=== PATIENT | female | born 1950 | race Caucasian/White ===

== ENCOUNTER 2022-04-21 10:23 | Emergency (ER) | payer MEDICARE, BC, SELFPAY ==
[2022-04-21 10:43] VITALS: BP 128/79; PULSE 78; RESP 20; TEMP 36.4; O2SAT 96; BMI 31.1
[2022-04-21 11:58] LABS: PCR FLU A Negative PCR FLU A (Negative); PCR FLU B Negative PCR FLU B (Negative); PCR RSV Negative PCR RSV (Negative)
--- NOTE | 2022-04-21 12:28 | CRLHL7_ITS ---
For Patients: As a result of the Cures Act, medical imaging exams and procedure reports are released immediately into your electronic medical record. You may view this report before your referring provider. If you have questions, please contact your health care provider. INDICATION: Cough. TECHNIQUE: PA and lateral chest radiographs. COMPARISON: None available. FINDINGS: Mild bronchial wall thickening. No consolidation, pneumothorax, or pleural effusion. Normal cardiac and mediastinal contours. IMPRESSION: Diffuse bronchial wall thickening as may be seen with bronchitis/viral infection. Dictated by Syed Peoples MD @ 04/21/2022 1:01:40 PM Dictated by: Syed Peoples MD @ 04/21/2022 13:01:44 (Electronically Signed)
--- NOTE | 2022-04-21 12:29 | ED_ITS ---
HPI - General Adult General Time Seen by Provider: 12:29 Date Seen: 04/21/22 Chief complaint: Cough Stated complaint: Cold and cough symptoms Time Seen by Provider: 04/21/22 12:28 Source: patient and RN notes reviewed Mode of arrival: ambulatory Limitations: no limitations History of Present Illness HPI narrative: Patient is a 71-year-old female that was seen in triage initially due to the high volume and acuity. She did have weight before being seen. She has been sick since about Friday. She feels like she has a little confused about her respiratory symptoms. Thought she was just getting a bit of a cold. Then yesterday started getting a little bit of right shoulder pain reminiscent of prior pneumonia. She states she had pneumonia when she was younger and it was quite severe, states she was on her way out. She has had a little bit more productive cough overnight. She is not aware of any fevers. Her hormone patch has been off for 3 days, she still gets hot flashes. Difficult for her to say that she has not felt warm at times because of this, she states it is a bit confusing to her. She relays multiple friends and acquaintances that have re cently had respiratory symptoms and then . She had COVID in August of 2021. She had her to initial COVID vaccines, is not interested in further ones. She has had her flu shot and believe she is up-to-date on her pneumonia shots. Denies any abdominal symptoms with this, no nausea vomiting diarrhea. No chest pain but does note that she has had a couple episodes where she has had some arrhythmia issues. Not currently having it now. Has noted maybe a little swelling of her socks on her sock line, does not typically have lower extremity edema. Her triple swab is still pending at this time. She denies any asthma or chronic lung disease but does note she will get bronchitis if she is exposed to smoke. Related Data Home Medications Medication Instructions Recorded Confirmed No Known Home Medications 04/21/22 04/21/22 Allergies Allergy/AdvReac Type Severity Reaction Status Date / Time Penicillins Allergy Anaphylaxis Verified 04/21/22 10:47 Review of Systems Status of ROS: Reports: 10 or more systems reviewed and unremarkable except as noted in History and below Exam Const: Vital Signs, click to edit/add: Vital Signs - 24 hr 04/21/22 10:43 Temperature 97.6 F Pulse Rate [Pulse Oximeter] 78 Respiratory Rate 20 Blood [facility] 128/79 Pulse Oximetry 96 Oxygen Delivery Me thod Room Air Documenting provider has reviewed patient's vital signs: yes Common normals: no apparent distress, oriented x3, no limitations, healthy appearing, alert and well nourished General appearance: cooperative, comfortable, well kempt and well developed HENMT: Common normals: normocephalic, head/scalp atraumatic, hearing grossly normal bilaterally and external ears normal Head and scalp: normocephalic and atraumatic External ear: external ears normal Eye: Common normals: PERRL, EOMs intact bilaterally, conjunctivae normal and no scleral icterus Conjunctiva: conjunctiva(e) normal Pupil: PERRL Neck & C-Spine: Common normals: full ROM, no lymphadenopathy, supple, no meningeal signs, no JVD and thyroid normal Thyroid: thyroid normal Resp: Common normals: normal respiratory effort, no retractions, no use of accessory muscles and clear to auscultation bilaterally Effort & inspection: able to speak in complete sentences Auscultation: clear to auscultation bilaterally Cardio: Common normals: no JVD, regular rate, regular rhythm, S1 normal heart sound, S2 normal heart sound, no gallops, no clicks, no murmurs and no rub Rate: regular rate Rhythm: regular rhythm Heart sounds: S1 normal and S2 normal Extremity: Other: Can see small indentation from her sock line which is bilateral and symmetric but no pitting edema per se of her lower extremities, no calf tenderness. Neuro: Common normals: oriented x3 Sensorium/orientation: alert Meningeal signs: no meningeal signs Psych: Appearance: well kempt Course Course Hospital Course: Did provide patient with water, she will go back to the the [facility]. I will order a two view chest x-ray. She is hemodynamically stable, also await the triple swab. At this time do not see that any labs are necessary but will await our chest x-ray and triple swab. Reevaluation(s) Reevaluation #1: Patient's triple swab is negative, awaiting chest x-ray. Will order some baseline labs. Time: 12:36 Reevaluation #2: Have brought chest x-ray report and copy of patient's labs in and reviewed them all. She does have some bronchial thickening on her chest x-ray but reviewed with her that this is viral. Antibiotics are not indicated. Her labs are completely normal. Recommend [id number] medication, follow up if worsening. Did review prednisone, she does not like to take it. I personally would favor observation and conservative management rather than prednisone but did want to review this with her. Time: 15:00 Vital Signs Vital signs: Initial Vital Signs Temperature 97.6 F 04/21/22 10:43 Temperature Source Temporal Artery Scan 04/21/22 10:43 Pulse Rate 78 04/21/22 10:43 Respiratory Rate 20 04/21/22 10:43 Blood Pressure 128/79 04/21/22 10:43 Blood Pressure Mean 95 04/21/22 10:43 Blood Pressure Position Sitting 04/21/22 10:43 Pulse Oximetry 96 04/21/22 10:43 Oxygen Delivery Method 04/21/22 10:43 Vital Signs Temperature 97.6 F 04/21/22 10:43 Pulse Rate 78 04/21/22 10:43 Respiratory Rate 20 04/21/22 10:43 Blood Pressure 128/79 04/21/22 10:43 Pulse Oximetry 96 04/21/22 10:43 Oxygen Delivery Method 04/21/22 10:43 Temperature 97.6 F 04/21/22 10:43 Pulse Rate 78 04/21/22 10:43 Respiratory Rate 20 04/21/22 10:43 Blood Pressure 128/79 04/21/22 10:43 Pulse Oximetry 96 04/21/22 10:43 Oxygen Delivery Method 04/21/22 10:43 Medical Decision Making Lab Data Lab results reviewed: Yes I reviewed the patient's lab results Labs: Lab Results 04/21/22 04/21/22 04/21/22 Range/Units 10:47 12:37 13:29 WBC 6.88 (4.50-11.00) K/uL RBC 4.73 (4.00-5.20) m/uL Hgb 15.6 (12.0-16.0) gm/dL Hct 44.8 (33.0-51.0) % MCV 95 (80-100) fL MCH 33 (26-34) pg MCHC 35 (32-36) gm/dL RDW Coeff of Royal 11.7 (11.5-15.5) % Plt Count 229 (140-440) K/uL Neut % (Auto) 53.1 (42.0-72.0) % Lymph % (Auto) 35.8 (20-44) % [place] % (Auto) 7.1 (0.0-11.0) % Eos % (Auto) 3.6 (0.0-7.0) % Baso % (Auto) 0.4 (0.0-3.0) % Neut # (Auto) 3.65 (1.7-7.0) K/uL Lymph # (Auto) 2.46 (0.90-2.90) K/uL [place] # (Auto) 0.50 (0.00-0.90) K/UL Eos # (Auto) 0.25 (0.00-0.50) K/uL Baso # (Auto) 0.03 (0.00-0.30) K/uL Sodium (135-149) mmol/L Potassium (3.6-5.1) mmol/L Chloride (96-114) mmol/L Carbon Dioxide (20-32) mmol/L BUN (7-30) mg/dL Creatinine (0.5-1.5) mg/dL Estimated Creat Clear Estimated GFR ml/min Glucose (60-115) mg/dL Calcium (8.4-10.6) mg/dL C-Reactive Protein (0.5-1.0) mg/dL NT-Pro-B Natriuret Pep pg/mL Procalcitonin (<0.50) ng/mL SARS-CoV-2 (PCR) Negative SARS-CoV-2 (Negative) Influenza Type A (PCR) Negative PCR FLU A (Negative) Influenza Type B (PCR) Negative PCR FLU B (Negative) RSV (PCR) Negative PCR RSV (Negative) POC Troponin I 0.01 (0.01-0.04) ng/ml 04/21/22 04/21/22 Range/Units 13:29 13:29 WBC (4.50-11.00) K/uL RBC (4.00-5.20) m/uL Hgb (12.0-16.0) gm/dL Hct (33.0-51.0) % MCV (80-100) fL MCH (26-34) pg MCHC (32-36) gm/dL RDW Coeff of Royal (11.5-15.5) % Plt Count (140-440) K/uL Neut % (Auto) (42.0-72.0) % Lymph % (Auto) (20-44) % [place] % (Auto) (0.0-11.0) % Eos % (Auto) (0.0-7.0) % Baso % (Auto) (0.0-3.0) % Neut # (Auto) (1.7-7.0) K/uL Lymph # (Auto) (0.90-2.90) K/uL [place] # (Auto) (0.00-0.90) K/UL Eos # (Auto) (0.00-0.50) K/uL Baso # (Auto) (0.00-0.30) K/uL Sodium 139 (135-149) mmol/L Potassium 3.9 (3.6-5.1) mmol/L Chloride 106 (96-114) mmol/L Carbon Dioxide 26 (20-32) mmol/L BUN 20 (7-30) mg/dL Creatinine 0.7 (0.5-1.5) mg/dL Estimated Creat Clear 45.76 Estimated GFR 92 ml/min Glucose 105 (60-115) mg/dL Calcium 9.3 (8.4-10.6) mg/dL C-Reactive Protein 0.6 (0.5-1.0) mg/dL NT-Pro-B Natriuret Pep < 20 pg/mL Procalcitonin 0.05 (<0.50) ng/mL SARS-CoV-2 (PCR) (Negative) Influenza Type A (PCR) (Negative) Influenza Type B (PCR) (Negative) RSV (PCR) (Negative) POC Troponin I (0.01-0.04) ng/ml Imaging Data Chest x-ray: Attestation: I have reviewed the pertinent imaging results. My impression: Do not appreciate any pneumonia on my preliminary review of this chest x-ray. Radiologist's impression: Patient: OLLEI AHMADI Facility:?[facility] Patient ID:?[id number] Site Patient ID:?[id number]. Site :?[id number] Study:?XRay Chest 2 View-04/21/2022 12:48:55 PM Ordering Physician:Sharon Lama Final Report: INDICATION: Cough. TECHNIQUE: PA and lateral chest radiographs. COMPARISON: None available. FINDINGS: Mild bronchial wall thickening. No consolidation, pneumothorax, or pleural effusion. Normal cardiac and mediastinal contours. IMPRESSION: Diffuse bronchial wall thickening as may be seen with bronchitis/viral infection. Dictated by Syed Peoples MD @ 04/21/2022 1:01:40 PM Dictated by: Syed Peoples MD @ 04/21/2022 13:01:44 (Electronic Signature) Critical Care Time Critical Care Time Critical Care Time: No Discharge Plan Discharge Clinical Impression: Acute bronchitis, viral Patient Disposition: Home, Self-Care Condition: Stable Instructions: Acute Bronchitis (ED) Additional Instructions: Can use micc-nao-oqpsvuf medications for symptom control. Drink plenty of fluids. Can try lozenges as well to help minimize coughing. Antibiotics are not indicated at this time, all is pointing towards this being viral. If you are not improving over the next week, develops increasing symptoms of worsening cough, develops fever, are having shortness of breath/difficulty breathing, do recommend you seek re-evaluation. Activity Level: Activity as Tolerated Prescriptions: No Action No Known Home Medications Follow Up/Referrals: Alfonzo Mazariegos MD [Primary Care Provider] - Stand Alone Forms: [place] [employer] Info Instructions
[2022-04-21 12:31] LABS: SARS PCR* Negative SARS-CoV-2 (Negative)
--- NOTE | 2022-04-21 12:33 | ED.NURSE ---
Pt was seen and sent out to [facility] by Dr Johnson.
[2022-04-21 13:47] LABS: Troponin, Point-of-Care* 0.01 ng/ml (0.01-0.04)
[2022-04-21 13:58] LABS: Basophils Absolute Auto 0.03 K/uL (0.00-0.30); Basophils Percent Auto 0.4 % (0.0-3.0); Eosinophils Absolute Auto 0.25 K/uL (0.00-0.50); Eosinophils Percent Auto 3.6 % (0.0-7.0); Hematocrit 44.8 % (33.0-51.0); Hemoglobin* 15.6 gm/dL (12.0-16.0); Lymphocytes Absolute Auto 2.46 K/uL (0.90-2.90); Lymphocytes Percent Auto 35.8 % (20-44); Mean Corpuscular HGB Conc 35 gm/dL (32-36); Mean Corpuscular Hemoglobin 33 pg (26-34); Mean Corpuscular Volume 95 fL (80-100); Monocytes Percent Auto 7.1 % (0.0-11.0); Neutrophils Absolute Auto 3.65 K/uL (1.7-7.0); Neutrophils Percent Auto 53.1 % (42.0-72.0); Platelet Count* 229 K/uL (140-440); RDW Coefficient of Variation % 11.7 % (11.5-15.5); Red Blood Count 4.73 m/uL (4.00-5.20); White Blood Count* 6.88 K/uL (4.50-11.00)
[2022-04-21 14:03] LABS: Slide Review Reflex No
[2022-04-21 14:18] LABS: Chloride* 106 mmol/L (96-114); Sodium* 139 mmol/L (135-149)
[2022-04-21 14:19] LABS: Potassium* 3.9 mmol/L (3.6-5.1)
[2022-04-21 14:21] LABS: Creatinine* 0.7 mg/dL (0.5-1.5); Est. Creatinine Clearance* 45.76; Estimated Glomerular Filt Rate 92 ml/min
[2022-04-21 14:22] LABS: Blood Urea Nitrogen* 20 mg/dL (7-30); Calcium* 9.3 mg/dL (8.4-10.6); Carbon Dioxide* 26 mmol/L (20-32); Glucose* 105 mg/dL (60-115)
[2022-04-21 14:25] LABS: C Reactive Protein* 0.6 mg/dL (0.5-1.0)
[2022-04-21 14:33] LABS: NT Pro B Type NatriureticPept* < 20 pg/mL
[2022-04-21 14:40] LABS: Procalcitonin* 0.05 ng/mL (<0.50)
== END 2022-04-21 15:08 | disposition home or self-care (01) ==
PROVIDERS: Emergency Provider Family Medicine; PCP Family Medicine
DX: J20.8 Acute bronchitis due to other specified organisms (principal)
CPT/HCPCS: 36415; 71046; 80048; 83880; 84145; 84484; 85025; 86140; 87502; 87634; 87635; 99283; 99284

== ENCOUNTER 2022-06-11 13:54 | Outpatient (CLI) | payer MEDICARE, BC, SELFPAY ==
[2022-06-11 15:56] LABS: Cholesterol* 197 mg/dL (90-199); HDL Cholesterol* 46 mg/dL (>=50); LDL Cholesterol Calculated 111 mg/dL (<100); Triglycerides* 202 mg/dL (40-149)
== END 2022-06-11 13:55 | disposition home or self-care (01) ==
PROVIDERS: PCP Family Medicine; Visit Provider Internal Medicine
DX: Z00.00 Encounter for general adult medical examination without abnormal findings (principal); R63.5 Abnormal weight gain; Z13.6 Encounter for screening for cardiovascular disorders
CPT/HCPCS: 80061; 84443

== ENCOUNTER 2022-09-24 21:08 | Outpatient (CLI) | payer MEDICARE, BC, SELFPAY ==
--- NOTE | 2022-10-03 11:36 | W.PM.SLEEP ---
Sleep Study Details Details Interpreting Provider: Christin Date of Sleep Study: 09/24/22 Sleep Study Details: STUDY TYPE:? Hospital-based with CPAP titration ? BMI:? 30.8 ORDERING PROVIDER:? Daniel INDICATION:? Concerns about sleep apnea ? SLEEP SUMMARY:? 317 minutes sleep time, efficiency 80.6, arousal index 38.8 RESPIRATORY SUMMARY:? Mean oxygen awake 95, asleep 92, minimum 81 11.3 minutes oxygen between 80 and 88% AHI 26.7, RDI 34.8 Supine AHI 70.2, no supine REM sleep seen comp my Nonsupine AHI 11.6 CPAP titration was performed the patient was titrated up as high as a pressure of 9 decreasing AHI to 13 and coding REM stage sleep in the supine position. This would be considered an incomplete titration. PERIODIC LIMB MOVEMENTS OF SLEEP:? Pretreatment none were noted, post treatment index 20.1, index with arousal 0.6 CARDIAC:? Awake 75, asleep 65. No arrhythmias noted. IMPRESSION:? Severe obstructive sleep apnea with an AHI of 26.7 and an RDI of 34.8. There was significant supine position dependency. CPAP titration was incomplete RECOMMENDATION: Either repeat in-lab titration or CPAP AutoSet pressure 4-17 with close follow-up.
== END 2022-09-24 21:09 | disposition home or self-care (01) ==
PROVIDERS: PCP Family Medicine; Visit Provider Internal Medicine
DX: G47.33 Obstructive sleep apnea (adult) (pediatric) (principal)
CPT/HCPCS: 95811

== ENCOUNTER 2023-04-11 19:15 | Emergency (ER) | payer MEDICARE, BC, SELFPAY ==
[2023-04-11 19:37] VITALS: BP 156/79; PULSE 99; RESP 20; TEMP 37.2; O2SAT 95; BMI 32.4
--- NOTE | 2023-04-11 19:51 | CRLHL7_ITS ---
For Patients: As a result of the Cures Act, medical imaging exams and procedure reports are released immediately into your electronic medical record. You may view this report before your referring provider. If you have questions, please contact your health care provider. INDICATION: Cough. TECHNIQUE: Chest radiographs, two views. COMPARISON: Chest radiographs 05/16/2022. FINDINGS: Lines/Tubes/Devices: None. Mediastinum: Normal cardiac silhouette. Lungs: No focal consolidation. Airways: The trachea remains midline. Pleura: No pleural effusions or pneumothorax. Bones: No acute osseous abnormalities. Upper Abdomen: Unremarkable. IMPRESSION: No acute cardiopulmonary process. Stable examination. Dictated by Ángel Valles MD @ 04/11/2023 8:47:26 PM (Electronically Signed)
--- NOTE | 2023-04-11 19:53 | ED_ITS ---
HPI - General Adult General Chief complaint: Cough Stated complaint: Cough Time Seen by Provider: 04/11/23 19:44 History of Present Illness HPI narrative: This 72-year-old female states that she was diagnosed with COVID a couple weeks ago and comes in with worsening cough recently. She does not report any fevers. She does have some generalized aches and pains. She arrives here with normal vital signs. She states that her cough now is productive at times. Related Data Previous Rx's Medication Instructions Recorded methylprednisolone 4 mg tablets in See Rx Instructions PO .COMPLEX 04/11/23 a dose pack (Medrol ([place])) #21 ea Allergies Allergy/AdvReac Type Severity Reaction Status Date / Time Penicillins Allergy Anaphylaxis Verified 03/30/23 10:26 Review of Systems Status of ROS: Reports: 10 or more systems reviewed and unremarkable except as noted in History and below Narrative: Constitutional: No fevers, no weight gain or loss. Eyes: No discharge. No vision changes. HENT: No congestion, no sore throat, no ear pain. Cardiovascular: No chest pain, no palpitations. Respiratory: No shortness of breath, no wheezes. Cough as described above. Gastrointestinal: No abdominal pain, no vomiting, no diarrhea. Genitourinary: No dysuria, no hematuria. Musculoskeletal: Normal range of motion. Skin: No rashes, no pruritis. Neurological: No dizziness, weakness, sensory change, speech change. Endo/Heme/Allergies: No bruising or bleeding. No polydipsia. Pysch: no suicidality, no anxiety, no insomnia. All other systems reviewed and are negative. [facility] Medical History Acute bronchitis ?J20.9 - Acute bronchitis, unspecified (ICD-10) Visual changes ?H53.9 - Unspecified visual disturbance (ICD-10) Cataracts, bilateral ?H26.9 - Unspecified cataract (ICD-10) Healthcare maintenance ?Z00.00 - Encounter for general adult medical examination without abnormal findings (ICD-10) Achilles tendinitis ?M76.60 - Achilles tendinitis, unspecified leg (ICD-10) Weight gain ?R63.5 - Abnormal weight gain (ICD-10) Hearing loss ?H91.90 - Unspecified hearing loss, unspecified ear (ICD-10) Osteoarthritis ?M19.90 - Unspecified osteoarthritis, unspecified site (ICD-10) ANGEL LUIS (obstructive sleep apnea) ?G47.33 - Obstructive sleep apnea (adult) (pediatric) (ICD-10) Surgical History History of tonsillectomy ?Z90.89 - Acquired absence of other organs (ICD-10) History of appendectomy ?Z90.49 - Acquired absence of other specified parts of digestive tract (ICD- 10) History of cholecystectomy ?Z90.49 - Acquired absence of other specified parts of digestive tract (ICD- 10) Social History Smoking Status: Never smoker Do you use any of these nicotine containing products: None Second hand tobacco smoke exposure: No How often do you have a drink containing alcohol: never How often do you have six or more drinks on one occasion: Never AUDIT-C Alcohol total score: 0 Non-prescribed substance use: denies use Little interest or pleasure in doing things: not at all service: No Exam Narrative: Exam Narrative: Constitutional: Well-developed, well-nourished, no acute distress. HEENT: Normocephalic, atraumatic. Neck: Normal range of motion. Nontender. Supple. Heart: Regular. No murmurs. Normal rate. Intact distal pulses. Lungs: Clear to auscultation. No chest discomfort. No wheezes, rhonchi, or rales. Abdomen: Normal bowel sounds. Nontender. No rebound tenderness. Genitalia: Deferred. Back: No midline tenderness. Normal range of motion. Extremities: Normal range of motion. No injury. Skin: Intact. No rash. Warm. No erythema or pallor. Neurologic: No altered sensation. No weakness. Alert and oriented. Psychiatric: No suicidality. No anxiety or depression. No insomnia. Nursing notes and vitals signs are reviewed. Const: Vital Signs, click to edit/add: Vital Signs - 24 hr 04/11/23 19:37 Temperature 98.9 F Pulse Rate [Right Pulse Oximeter] 99 Respiratory Rate 20 Blood Pressure [Ri ght Upper Arm] 156/79 H Pulse Oximetry 95 Oxygen Delivery Me thod Room Air Course Vital Signs Vital signs: Initial Vital Signs Temperature 98.9 F 04/11/23 19:37 Temperature Source Temporal Artery Scan 04/11/23 19:37 Pulse Rate 99 04/11/23 19:37 Respiratory Rate 20 04/11/23 19:37 Blood Pressure 156/79 H 04/11/23 19:37 Blood Pressure Mean 104 04/11/23 19:37 Blood Pressure Position Sitting 04/11/23 19:37 Pulse Oximetry 95 04/11/23 19:37 Oxygen Delivery Method Room Air 04/11/23 19:37 Vital Signs Temperature 98.9 F 04/11/23 19:37 Pulse Rate 99 04/11/23 19:37 Respiratory Rate 20 04/11/23 19:37 Blood Pressure 156/79 H 04/11/23 19:37 Pulse Oximetry 95 04/11/23 19:37 Oxygen Delivery Method Room Air 04/11/23 19:37 Temperature 98.9 F 04/11/23 19:37 Pulse Rate 99 04/11/23 19:37 Respiratory Rate 20 04/11/23 19:37 Blood Pressure 156/79 H 04/11/23 19:37 Pulse Oximetry 95 04/11/23 19:37 Oxygen Delivery Method Room Air 04/11/23 19:37 Medications Administered Medications: Discontinued Medications Generic Name Dose Route Start Last Admin Trade Name Sylvia PRN Reason Stop Dose Admin Dexamethasone 10 mg 04/11/23 19:53 04/11/23 19:56 Dexamethasone 10 Mg/Ml Inj PO 04/11/23 19:54 10 mg ONCE ONE Administration Medical Decision Making MDM Narrative Medical decision making narrative: This patient comes in with persistent cough after being diagnosed with COVID a couple weeks ago. Chest x-ray by my review shows no acute findings. The patient has normal vital signs and her exam is otherwise normal. She did receive an oral dose of dexamethasone 10 mg. I did also provide prescriptions for Medrol Dosepak and Tylenol 3 for symptomatic relief. Discharge Plan Discharge Clinical Impression: Bronchitis Patient Disposition: Home, Self-Care Condition: Stable Additional Instructions: Take medication as prescribed and needed. Use other [id number]-[id number] medicines also as needed and directed. Follow up with MD return if worsening. Prescriptions: New methylprednisolone [Medrol ([place])] 4 mg tablets,dose pack See Rx Instructions .ROUTE .COMPLEX Qty: 21 0RF Rx Instructions: orally per package directions Follow Up/Referrals: Ricardo Sanchez MD [Primary Care Provider] - Stand Alone Forms: [employer] Info Instructions
[2023-04-11] MEDS: dexAMETHasone 10 MG/ML inj PO (19:56)
== END 2023-04-11 21:04 | disposition home or self-care (01) ==
PROVIDERS: Emergency Provider Emergency Medicine Emergency Medical Services; PCP Internal Medicine
DX: J40 Bronchitis, not specified as acute or chronic (principal)
CPT/HCPCS: 71046; 99283; 99284; J1100

== ENCOUNTER 2023-07-06 15:22 | Emergency (ER) | payer MEDICARE, BC, SELFPAY ==
[2023-07-06 15:24] VITALS: BP 127/89; PULSE 125; RESP 22; TEMP 36.2; O2SAT 96; BMI 38.1
--- NOTE | 2023-07-06 15:54 | ED.FALL ---
HPI - Fall General Time Seen by Provider: 15:54 Date Seen: 07/06/23 Chief Complaint: Fall/Minor Trauma Stated Complaint: Fall; side ways off steps Time Seen by Provider: 07/06/23 15:52 History of Present Illness HPI Narrative: This 72-year-old female is coming into the ED of her own accord after falling down about 8 steps. 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 She lost balance and went down sideways down the stairs. She did get herself up, was able to drive herself to the ER. She did not hit her head, denies any loss of consciousness, no acute neck or back pain. She is having no difficulty breathing, no chest pain reported. There is no numbness tingling. She states it is really her whole right side that is hurting in the arm and the leg below the knee. She has a lot of pain in her right wrist, does feel pain in the elbow area that does go up into the shoulder. She is also feeling pain in the knee area, does have some in the right lower leg and right foot primarily. She was ambulatory into the ED of her own accord. She has ice on the right wrist area right now, would take some Tylenol. Did question her whether she wanted something for pain. She did drive herself here. Patient does state that she does have fibromyalgia, feels like some of her pain might be coming from fibromyalgia now. complaint: fall Related Data Home Medications Medication Instructions Recorded Confirmed prednisolone acetate 1 % eye 1 drp ophthalmic (eye-left) QID 07/06/23 07/06/23 drops,suspension Allergies Allergy/AdvReac Type Severity Reaction Status Date / Time Penicillins Allergy Anaphylaxis Verified 07/06/23 15:32 Review of Systems Status of ROS: Reports: 6 or more systems reviewed and unremarkable except as noted in History and below [facility] Medical History Acute bronchitis ?J20.9 - Acute bronchitis, unspecified (ICD-10) Visual changes ?H53.9 - Unspecified visual disturbance (ICD-10) Cataracts, bilateral ?H26.9 - Unspecified cataract (ICD-10) Healthcare maintenance ?Z00.00 - Encounter for general adult medical examination without abnormal findings (ICD-10) Achilles tendinitis ?M76.60 - Achilles tendinitis, unspecified leg (ICD-10) Weight gain ?R63.5 - Abnormal weight gain (ICD-10) Hearing loss ?H91.90 - Unspecified hearing loss, unspecified ear (ICD-10) Osteoarthritis ?M19.90 - Unspecified osteoarthritis, unspecified site (ICD-10) ANGEL LUIS (obstructive sleep apnea) ?G47.33 - Obstructive sleep apnea (adult) (pediatric) (ICD-10) Surgical History History of tonsillectomy ?Z90.89 - Acquired absence of other organs (ICD-10) History of appendectomy ?Z90.49 - Acquired absence of other specified parts of digestive tract (ICD-10) History of cholecystectomy ?Z90.49 - Acquired absence of other specified parts of digestive tract (ICD-10) Social History Smoking Status: Never smoker Do you use any of these nicotine containing products: None Second hand tobacco smoke exposure: No How often do you have a drink containing alcohol: never How often do you have six or more drinks on one occasion: Never AUDIT-C Alcohol total score: 0 Non-prescribed substance use: denies use Little interest or pleasure in doing things: not at all Feeling down, depressed, or hopeless: not at all service: No Exam Const: Vital Signs, click to edit/add: Vital Signs - 24 hr 07/06/23 15:24 07/06/23 17:13 Temperature 97.1 F L Pulse Rate [Pulse Oximeter] 125 H 91 Respiratory Rate 22 Blood Pressure [Le ft Upper Arm] 127/89 Pulse Oximetry 96 94 Oxygen Delivery Me thod Room Air Room Air Patient is alert, interactive, no apparent distress, sitting up in the exam bed in room 3. She has ice on her right wrist. Pupils equal round, reactive, sclera clear, face atraumatic, able speak in complete sentences. No midline tenderness of her neck, good range of motion. No appreciable tenderness over the clavicles or AC joints. She can shrug her shoulders, does not cause her any pain. When we move her right elbow or right wrist, she gets pain radiating into the forearm from the wrist in into the upper arm and shoulder area with the elbow. I cannot fully mobilize her right shoulder due to pain complaints. I can get full flexion extension of the elbow but due to complaints of pain shooting up into the arm this was halted. Her right wrist looks a little swollen, has diminished range of motion due to pain. Metacarpals fingers neurovascular intact, good range of motion, do not seem to have any tender areas. Lungs are clear, good air entry, no wheezing or crackles. CV regular rate and rhythm, no murmur, normal S1-S2. Abdomen is soft, nontender. On inspection of her lower extremities I see no evidence of any ecchymosis, no erythema, no abrasions. I can flex and extend her knee, she does state it just has some pain in it. Her ankle does not seem to be tender, no swelling but there is pain on the dorsum of the midfoot area on the right. Neurovascular is intact. She also complains of pain in the right greater toe without any visible deformity. There is pain with general palpation and range of motion of the toe. I see no open wounds anywhere. Documenting provider has reviewed patient's vital signs: yes Course Course ED Course: Will give patient 1000 mg Tylenol for pain. She will continue with ice. We will obtain x-ray images with plain films of her right shoulder, elbow, wrist, knee, foot. Will attempt to rule out fractures. This time I see no major deformity of anything, there is notable swelling around her right wrist. Reevaluation(s) Time of Reevaluation #1: 17:33 Reevaluation #1: Have reviewed x-ray findings with the patient, did show her images of the wrist as well as the toe. We discussed management. We discussed the fact that she certainly can still have pain in other areas, she had a fall, there certainly can be associated soft tissue injury and bruising that may develop. Vital Signs Vital signs: Initial Vital Signs Temperature 97.1 F L 07/06/23 15:24 Temperature Source Temporal Artery Scan 07/06/23 15:24 Pulse Rate 125 H 07/06/23 15:24 Respiratory Rate 22 07/06/23 15:24 Blood Pressure 127/89 07/06/23 15:24 Blood Pressure Mean 101 03/17/24 15:24 Blood Pressure Position Sitting 07/06/23 15:24 Pulse Oximetry 96 07/06/23 15:24 Oxygen Delivery Method Room Air 07/06/23 15:24 Vital Signs Temperature 97.1 F L 07/06/23 15:24 Pulse Rate 125 H 07/06/23 15:24 Respiratory Rate 22 07/06/23 15:24 Blood Pressure 127/89 07/06/23 15:24 Pulse Oximetry 96 07/06/23 15:24 Oxygen Delivery Method Room Air 07/06/23 15:24 Temperature 97.1 F L 07/06/23 15:24 Pulse Rate 91 07/06/23 17:13 Respiratory Rate 22 07/06/23 15:24 Blood Pressure 127/89 07/06/23 15:24 Pulse Oximetry 94 07/06/23 17:13 Oxygen Delivery Method Room Air 07/06/23 17:13 Medications Administered Medications: Discontinued Medications Generic Name Dose Route Start Last Admin Trade Name Freq PRN Reason Stop Dose Admin Acetaminophen 1,000 mg 07/06/23 16:07 07/06/23 16:25 Acetaminophen 500 Mg Tablet PO 07/06/23 16:08 1,000 mg ONCE ONE Administration MDM - Fall Imaging Data XR right shoulder: Attestation: I have reviewed the pertinent imaging results. My impression: I did not appreciate any acute fracture or abnormality on my preliminary review. Radiologist's impression: Patient: OLLIE AHMADI Facility:?[facility] Patient ID:?[id number] Site Patient ID:?[id number]. Site :?1950 Study:?XRay Extremity Right SHOULDER 3V-07/06/2023 4:55:29 PM Ordering Physician:HERO Final Report: INDICATION: Fall. FINDINGS: Three views of the right shoulder were obtained. There is no acute fracture seen or dislocation. There are degenerative changes in the acromioclavicular joint. IMPRESSION: No acute bone abnormality. Dictated by Arnol Lawton MD @ 07/06/2023 5:17:32 PM (Electronic Signature) XR right elbow: Attestation: I have reviewed the pertinent imaging results. My impression: Do not appreciate any evidence of any acute injury or fracture on my preliminary review. Radiologist's impression: Patient: OLLIE AHMADI Facility:?[facility] Patient ID:?[id number] Site Patient ID:?[id number]. Site :?1950 Study:?XRay Extremity Right elbow 3v-07/06/2023 4:54:50 PM Ordering Physician:?BRUCE Final Report: INDICATION: Trauma. TECHNIQUE: Right elbow radiographs, 3 views. COMPARISON: None. FINDINGS: No acute fractures or dislocation. The joint spaces are preserved. No significant joint effusion. The fat pads of the elbow preserved. The radial head appears intact. No significant soft tissue edema or radiopaque foreign bodies. IMPRESSION: No acute fractures or dislocation. Dictated by Ángel Valles MD @ 07/06/2023 5:08:59 PM (Electronic Signature) XR right wrist: Attestation: I have reviewed the pertinent imaging results. My impression: Do wonder if there is subtle abnormality in the distal radius, await Radiology over-read. Radiologist's impression: Patient: OLLIE AHMADI Facility:?[facility] Patient ID:?[id number] Site Patient ID:?[id number]. Site :?1950 Study:?XRay Extremity Right WRIST 3V-07/06/2023 4:54:08 PM Ordering Physician:?BRUCE Final Report: INDICATION: Trauma. TECHNIQUE: Right wrist radiographs, 3 views. COMPARISON: None. FINDINGS: Diffuse osteopenia limits evaluation for subtle nondisplaced fractures. Subtle subchondral hyperattenuating linear lesion along the articular surface of the distal radius without discrete cortical discontinuity identified. The scaphoid appears intact. The scapholunate interval is preserved. The joint spaces are preserved. No significant joint effusion. Mild diffuse soft tissue edema. No radiopaque foreign bodies. IMPRESSION: Subtle hyperattenuating linear lesion along the articular surface of the distal radius without discrete cortical step-off, may represent a subtle nondisplaced fracture. Correlate with point tenderness, CT may be beneficial for improved characterization. Dictated by Ángel Valles MD @ 07/06/2023 5:07:17 PM (Electronic Signature) XR right knee: Attestation: I have reviewed the pertinent imaging results. My impression: I appreciate no acute fracture. Radiologist's impression: Patient: OLLIE AHMADI Facility:?[facility] Patient ID:?[id number] Site Patient ID:?[id number]. Site :?1950 Study:?XRay Extremity Right KNEE 2V-07/06/2023 4:56:41 PM Ordering Physician:HERO Final Report: INDICATION: Fall. FINDINGS: Two views of the right knee were obtained. There is no acute fracture or dislocation. There is no joint effusion. There is moderate medial joint space compartment narrowing with articular osteophytes seen medially. There are degenerative changes in the patellofemoral joint space compartment. IMPRESSION: No acute bone abnormality. Dictated by Arnol Lawton MD @ 07/06/2023 5:19:13 PM (Electronic Signature) XR right foot: Attestation: I have reviewed the pertinent imaging results. My impression: Did not initially appreciate fracture of the foot itself but after Radiology read done, can see the proximal phalanx fracture of the great toe. Radiologist's impression: Patient: OLLIE AHMADI Facility:?[facility] Patient ID:?[id number] Site Patient ID:?[id number]. Site :?1950 Study:?XRay Extremity Right FOOT 3V-07/06/2023 4:56:07 PM Ordering Physician:HERO Final Report: INDICATION: Fall. FINDINGS: Three views of the right foot were obtained. There is nondisplaced intra-articular fracture in the medial base of the 1st proximal phalanx. There is no other fracture seen or dislocation. There are degenerative changes in the 1st metatarsophalangeal joint. Impression: Nondisplaced intra-articular fracture medial base 1st proximal phalanx. Dictated by Arnol Lawton MD @ 07/06/2023 5:20:56 PM (Electronic Signature) Discharge Plan Discharge Clinical Impression: Acute pain of right shoulder, Elbow pain, right, Acute pain of right knee Fall Qualifiers: Encounter type: initial encounter Qualified Code(s): W19.XXXA - Unspecified fall, initial encounter Fracture of right distal radius Qualifiers: Encounter type: initial encounter Fracture type: closed Fracture morphology: unspecified fracture morphology Qualified Code(s): S52.501A - Unspecified fracture of the lower end of right radius, initial encounter for closed fracture Closed fracture of right great toe Qualifiers: Encounter type: initial encounter Phalanx: proximal Fracture alignment: nondisplaced Qualified Code(s): S92.414A - Nondisplaced fracture of proximal phalanx of right great toe, initial encounter for closed fracture Patient Disposition: Home, Self-Care Condition: Stable Instructions: Toe Fracture (ED), Wrist Fracture in Adults (ED), Knee Pain (ED), Shoulder Pain (ED) Additional Instructions: Use the orthopedic shoe as needed for comfort, talk to Orthopedics for further management of this toe. Need to keep the right wrist splint on, may take off briefly to shower or bathe. Need to contact the orthopedic office to get scheduled for follow-up. Phone number is [phone]. Use ice to help decrease pain and swelling of the fracture sites as well as any painful areas, elevation is helpful to decrease swelling as well. Tylenol and ibuprofen per bottle directions for pain management. Activity Level: Activity as Tolerated Prescriptions: No Action prednisolone acetate 1 % drops,suspension 1 drp ophthalmic (eye-left) QID Follow Up/Referrals: Ricardo Sanchez MD [Primary Care Provider] - Stand Alone Forms: [employer] Info Instructions
--- NOTE | 2023-07-06 16:07 | XR_ITS ---
Patient: OLLIE AHMADI Facility:?[facility] Patient ID:?[id number] Site Patient ID:?[id number]. Site :?1950 Study:?XRay-Extremity Right SHOULDER 3V-07/06/2023 4:55:29 PM Ordering Physician:HERO Final Report: INDICATION: Fall. FINDINGS: Three views of the right shoulder were obtained. There is no acute fracture seen or dislocation. There are degenerative changes in the acromioclavicular joint. IMPRESSION: No acute bone abnormality. Dictated by Arnol Lawton MD @ 07/06/2023 5:17:32 PM Signed by:?Arnlo Lawton MD @07/06/2023 5:17:32 PM (Electronic Signature)
--- NOTE | 2023-07-06 16:07 | XR_ITS ---
Patient: OLLIE AHMADI Facility:?[facility] Patient ID:?[id number] Site Patient ID:?[id number]. Site :?1950 Study:?XRay-Extremity Right FOOT 3V-07/06/2023 4:56:07 PM Ordering Physician:HERO Final Report: INDICATION: Fall. FINDINGS: Three views of the right foot were obtained. There is nondisplaced intra- articular fracture in the medial base of the 1st proximal phalanx. There is no other fracture seen or dislocation. There are degenerative changes in the 1st metatarsophalangeal joint. Impression: Nondisplaced intra-articular fracture medial base 1st proximal phalanx. Dictated by Arnol Lawton MD @ 07/06/2023 5:20:56 PM Signed by:?Arnol Lawton MD @07/06/2023 5:20:56 PM (Electronic Signature)
--- NOTE | 2023-07-06 16:07 | XR_ITS ---
Patient: OLLIE AHMADI Facility:?[facility] Patient ID:?[id number] Site Patient ID:?[id number]. Site :?1950 Study:?XRay-Extremity Right WRIST 3V-07/06/2023 4:54:08 PM Ordering Physician:HERO Final Report: INDICATION: Trauma. TECHNIQUE: Right wrist radiographs, 3 views. COMPARISON: None. FINDINGS: Diffuse osteopenia limits evaluation for subtle nondisplaced fractures. Subtle subchondral hyperattenuating linear lesion along the articular surface of the distal radius without discrete cortical discontinuity identified. The scaphoid appears intact. The scapholunate interval is preserved. The joint spaces are preserved. No significant joint effusion. Mild diffuse soft tissue edema. No radiopaque foreign bodies. IMPRESSION: Subtle hyperattenuating linear lesion along the articular surface of the distal radius without discrete cortical step-off, may represent a subtle nondisplaced fracture. Correlate with point tenderness, CT may be beneficial for improved characterization. Dictated by Ángel Valles MD @ 07/06/2023 5:07:17 PM Signed by:?Ángel Valles MD @07/06/2023 5:07:17 PM (Electronic Signature)
--- NOTE | 2023-07-06 16:07 | XR_ITS ---
Patient: OLLIE AHMADI Facility:?[facility] Patient ID:[id number] Site Patient ID:?[id number]. Site :?1950 Study:?XRay-Extremity Right elbow 3v-07/06/2023 4:54:50 PM Ordering Physician:HERO Final Report: INDICATION: Trauma. TECHNIQUE: Right elbow radiographs, 3 views. COMPARISON: None. FINDINGS: No acute fractures or dislocation. The joint spaces are preserved. No significant joint effusion. The fat pads of the elbow preserved. The radial head appears intact. No significant soft tissue edema or radiopaque foreign bodies. IMPRESSION: No acute fractures or dislocation. Dictated by Ángel Valles MD @ 07/06/2023 5:08:59 PM Signed by:?Ángel Valles MD @07/06/2023 5:08:59 PM (Electronic Signature)
--- NOTE | 2023-07-06 16:07 | XR_ITS ---
Patient: OLLIE AHMADI Facility:?[facility] Patient ID:[id number] Site Patient ID:?[id number]. Site :?1950 Study:?XRay-Extremity Right KNEE 2V-07/06/2023 4:56:41 PM Ordering Physician:HERO Final Report: INDICATION: Fall. FINDINGS: Two views of the right knee were obtained. There is no acute fracture or dislocation. There is no joint effusion. There is moderate medial joint space compartment narrowing with articular osteophytes seen medially. There are degenerative changes in the patellofemoral joint space compartment. IMPRESSION: No acute bone abnormality. Dictated by Arnol Lawton MD @ 07/06/2023 5:19:13 PM Signed by:?Arnol Lawton MD @07/06/2023 5:19:13 PM (Electronic Signature)
[2023-07-06] MEDS: ACETAMINOPHEN 500 MG TABLET 1000 MG PO (16:25)
[2023-07-06 17:13] VITALS: PULSE 91; O2SAT 94
== END 2023-07-06 18:15 | disposition home or self-care (01) ==
PROVIDERS: Emergency Provider Family Medicine; PCP Internal Medicine
DX: S52.501A Unspecified fracture of the lower end of right radius, initial encounter for closed fracture (principal); S92.414A Nondisplaced fracture of proximal phalanx of right great toe, initial encounter for closed fracture; W10.9XXA Fall (on) (from) unspecified stairs and steps, initial encounter; M25.511 Pain in right shoulder; M25.561 Pain in right knee
CPT/HCPCS: 29125; 73030; 73080; 73110; 73560; 73630; 99284; A9270

== ENCOUNTER 2023-08-05 22:50 | Emergency (ER) | payer MEDICARE, BC, SELFPAY ==
[2023-08-05 22:57] VITALS: BP 142/83; PULSE 98; RESP 18; TEMP 36.7; O2SAT 100; BMI 31.5
--- NOTE | 2023-08-05 23:00 | CT_ITS ---
Patient: OLLIE AHMADI Facility:?[facility] Patient ID:[id number] Site Patient ID:?[id number]. Site :?1950 Study:?CT-ST Neck W/ 95CC ISOVUE 370-08/05/2023 11:37:04 PM Ordering Physician:FRAN Final Report: TECHNIQUE: Multiplanar CT examination of the soft tissues of the neck was performed after the administration of 95 mL Isovue 370 intravenous contrast. INDICATION: Right-sided jaw swelling. COMPARISON: None. FINDINGS: Streak artifact from the dental hardware limits evaluation of the adjacent structures Visualized intracranial contents: Unremarkable. Aerodigestive: The oral cavity is unremarkable. The base of tongue is unremarkable. The epiglottis is unremarkable. The nasopharynx appears unremarkable. The hypopharynx and larynx are unremarkable. The trachea appears unremarkable. Salivary glands: There is subtle asymmetric hyperenhancement and enlargement of the right submandibular gland, with adjacent surrounding fat stranding and inflammation. The parotid and left submandibular glands are unremarkable. No obstructive sialolith identified. Lymph nodes: No cervical lymphadenopathy. Soft tissues: There is subtle mild thickening of the right platysma muscle, likely reactive. Vascular: Unremarkable. Thyroid: Subcentimeter hypodensities within the thyroid lobes bilaterally, incompletely characterized on this nondedicated examination. Visualized upper lungs: Unremarkable. Osseous: Multilevel degenerative changes of the cervical spine, severe degenerative disc disease at C5-6 and C6-7. No acute osseous abnormalities. IMPRESSION: Findings compatible with acute right submandibular sialoadenitis, with surrounding inflammation and reactive thickening of the right platysma muscle. Please note that all CT scans at this facility use dose modulation, iterative reconstruction, and/or weight-based dosing when appropriate to reduce radiation dose to as low as reasonably achievable. Dictated by Ángel Valles MD @ 08/06/2023 12:39:09 AM Signed by:?Ángel Valles MD @08/06/2023 12:39:09 AM (Electronic Signature)
--- NOTE | 2023-08-05 23:06 | ED_ITS ---
HPI - General Adult General Date Seen: 08/05/23 <Moises Springer DO - Last Filed: 08/05/23 23:39> Chief complaint: Neck Injury/Pain <Moises Collado Gian, DO - Last Filed: 08/05/23 23:39> Stated complaint: right neck swelling <Moises Springer DO - Last Filed: 08/05/23 23:39> Time Seen by Provider: 08/05/23 22:57 <Moises Springer DO - Last Filed: 08/05/23 23:39> Source: patient <Moises Springer DO - Last Filed: 08/05/23 23:39> Mode of arrival: ambulatory <Moises Springer - Last Filed: 08/05/23 23:39> Limitations: no limitations <Moisesmarcial Springer - Last Filed: 08/05/23 23:39> History of Present Illness HPI narrative: Patient is a 72-year-old female presenting to the emergency department for right-sided jaw swelling. She 1st noticed it about 30 minutes prior to arrival. States started in her right upper jaw near the angle she notices quickly moving down the jaw. Denies trismus. Denies any chest pain or shortness of breath. Has never had symptoms like this before. Initially noticed a hard lump near the angle of the mandible that has softened up. Denies fevers, chills, headache, vision changes, weakness, numbness. No other concerns noted at this time. States she is breathing without difficulty <Moises Springer DO - Last Filed: 08/05/23 23:39> Related Data Home medications: Home Medications Medication Instructions Recorded Confirmed prednisolone acetate 1 % eye 1 drp ophthalmic (eye-left) QID 07/06/23 08/04/23 drops,suspension Previous Rx's Medication Instructions Recorded phentermine 15 mg capsule 15 mg PO QDAY #30 caps 08/04/23 clindamycin HCl 300 mg capsule 300 mg PO TID #15 caps 08/05/23 <Moises Springer DO - Last Filed: 08/05/23 23:39> Allergies/adverse reactions: Allergies Allergy/AdvReac Type Severity Reaction Status Date / Time Penicillins Allergy Anaphylaxis Verified 08/05/23 23:28 <Moises Springer DO - Last Filed: 08/05/23 23:39> Review of Systems Status of ROS: Reports: 10 or more systems reviewed and unremarkable except as noted in History and below <Moises Springer DO - Last Filed: 08/05/23 23:39> [facility] Medical History: Medical History Obesity ?E66.9 - Obesity, unspecified (ICD-10) Acute bronchitis ?J20.9 - Acute bronchitis, unspecified (ICD-10) Visual changes ?H53.9 - Unspecified visual disturbance (ICD-10) Cataracts, bilateral ?H26.9 - Unspecified cataract (ICD-10) Healthcare maintenance ?Z00.00 - Encounter for general adult medical examination without abnormal findings (ICD-10) Achilles tendinitis ?M76.60 - Achilles tendinitis, unspecified leg (ICD-10) Weight gain ?R63.5 - Abnormal weight gain (ICD-10) Hearing loss ?H91.90 - Unspecified hearing loss, unspecified ear (ICD-10) Osteoarthritis ?M19.90 - Unspecified osteoarthritis, unspecified site (ICD-10) ANGEL LUIS (obstructive sleep apnea) ?G47.33 - Obstructive sleep apnea (adult) (pediatric) (ICD-10) <Moises Springer DO - Last Filed: 08/05/23 23:39> Surgical History: Surgical History History of tonsillectomy ?Z90.89 - Acquired absence of other organs (ICD-10) History of appendectomy ?Z90.49 - Acquired absence of other specified parts of digestive tract (ICD- 10) History of cholecystectomy ?Z90.49 - Acquired absence of other specified parts of digestive tract (ICD- 10) <Moises Springer DO - Last Filed: 08/05/23 23:39> Social History: Social History Smoking Status: Never smoker Do you use any of these nicotine containing products: None Second hand tobacco smoke exposure: No How often do you have a drink containing alcohol: never How often do you have six or more drinks on one occasion: Never AUDIT-C Alcohol total score: 0 Non-prescribed substance use: denies use Little interest or pleasure in doing things: not at all Feeling down, depressed, or hopeless: not at all service: No <Moises Springer DO - Last Filed: 08/05/23 23:39> Exam Narrative: Exam Narrative: Const: Well-nourished, Well-developed, in no distress Eyes: PERRL, no conjunctival injection, and symmetrical lids HENT: Atraumatic external nose and ears. Moist mucous membranes. Swelling noted to the right side of her jaw starting at the angle of the mandible in going down into the neck Neck: Symmetric, trachea midline, No thyromegaly. CVS: RRR, No murmurs or gallops. Peripheral pulses 2+ and equal in all extremities RESP: Unlabored respiratory effort. Clear to auscultation bilaterally. GI: Nontender/Nondistended, No rebound or guarding. MSK:Extremities w/o deformity, Normal Active ROM Skin: Warm, Dry. No rashes or lesions. Neuro: Normal Muscle tone, No focal neurological deficits. Psych: Awake, Alert, & Oriented x3. Appropriate mood and affect. <Moises Springer DO - Last Filed: 08/05/23 23:39> Const: Vital Signs, click to edit/add: Vital Signs - 24 hr 08/05/23 22:57 Temperature 98.0 F Pulse Rate [Pulse Oximeter] 98 Respiratory Rate 18 Blood Pressure [Ri ght Upper Arm] 142/83 H Pulse Oximetry 100 Oxygen Delivery Vt thod Room Air <Moises Springer DO - Last Filed: 08/05/23 23:39> Vital Signs, click to edit/add: Vital Signs - 24 hr 08/05/23 22:57 Temperature 98.0 F Pulse Rate [Pulse Oximeter] 98 Respiratory Rate 18 Blood Pressure [Ri ght Upper Arm] 142/83 H Pulse Oximetry 100 Oxygen Delivery Vt thod Room Air <Dany Beckman MD - Last Filed: 08/06/23 00:40> Course Reevaluation(s) Time of Reevaluation #3: 23:42 <Dany Beckman MD - Last Filed: 08/06/23 00:40> Reevaluation #3: CT scan soft tissue neck independently interpreted by me demonstrates some soft tissue inflammation of the right anterior neck with hyperenhancement and mild prominence of the right parotid gland consistent with sialadenitis, no stone seen. Patient will be started on antibiotics and follow-up with ENT as needed. <Dany Beckman MD - Last Filed: 08/06/23 00:40> Vital Signs Vital signs: Initial Vital Signs Temperature 98.0 F 08/05/23 22:57 Temperature Source Temporal Artery Scan 08/05/23 22:57 Pulse Rate 98 08/05/23 22:57 Respiratory Rate 18 08/05/23 22:57 Blood Pressure 142/83 H 08/05/23 22:57 Blood Pressure Mean 102 08/05/23 22:57 Blood Pressure Position Sitting 08/05/23 22:57 Pulse Oximetry 100 08/05/23 22:57 Oxygen Delivery Method Room Air 08/05/23 22:57 Vital Signs Temperature 98.0 F 08/05/23 22:57 Pulse Rate 98 08/05/23 22:57 Respiratory Rate 18 08/05/23 22:57 Blood Pressure 142/83 H 08/05/23 22:57 Pulse Oximetry 100 08/05/23 22:57 Oxygen Delivery Method Room Air 08/05/23 22:57 Temperature 98.0 F 08/05/23 22:57 Pulse Rate 98 08/05/23 22:57 Respiratory Rate 18 08/05/23 22:57 Blood Pressure 142/83 H 08/05/23 22:57 Pulse Oximetry 100 08/05/23 22:57 Oxygen Delivery Method Room Air 08/05/23 22:57 <Moises Springer DO - Last Filed: 08/05/23 23:39> Initial Vital Signs Temperature 98.0 F 08/05/23 22:57 Temperature Source Temporal Artery Scan 08/05/23 22:57 Pulse Rate 98 08/05/23 22:57 Respiratory Rate 18 08/05/23 22:57 Blood Pressure 142/83 H 08/05/23 22:57 Blood Pressure Mean 102 08/05/23 22:57 Blood Pressure Position Sitting 08/05/23 22:57 Pulse Oximetry 100 08/05/23 22:57 Oxygen Delivery Method Room Air 08/05/23 22:57 Vital Signs Temperature 98.0 F 08/05/23 22:57 Pulse Rate 98 08/05/23 22:57 Respiratory Rate 18 08/05/23 22:57 Blood Pressure 142/83 H 08/05/23 22:57 Pulse Oximetry 100 08/05/23 22:57 Oxygen Delivery Method Room Air 08/05/23 22:57 Temperature 98.0 F 08/05/23 22:57 Pulse Rate 98 08/05/23 22:57 Respiratory Rate 18 08/05/23 22:57 Blood Pressure 142/83 H 08/05/23 22:57 Pulse Oximetry 100 08/05/23 22:57 Oxygen Delivery Method Room Air 08/05/23 22:57 <Dany Beckman MD - Last Filed: 08/06/23 00:40> Medications Administered Medications: Discontinued Medications Generic Name Dose Route Start Last Admin Trade Name Freq PRN Reason Stop Dose Admin Clindamycin HCl 300 mg 08/05/23 23:47 08/06/23 00:19 Clindamycin 150 Mg Capsule PO 08/05/23 23:48 300 mg ONCE ONE Administration <Moises Springer DO - Last Filed: 08/05/23 23:39> Discontinued Medications Generic Name Dose Route Start Last Admin Trade Name Freq PRN Reason Stop Dose Admin Clindamycin HCl 300 mg 08/05/23 23:47 08/06/23 00:19 Clindamycin 150 Mg Capsule PO 08/05/23 23:48 300 mg ONCE ONE Administration <Dany Beckman MD - Last Filed: 08/06/23 00:40> Medical Decision Making [facility] Narrative Medical decision making narrative: Patient is a 72-year-old female presenting for concern of swelling to her right jaw. She is having no signs of airway compromise at this time. She does state the swelling seems to have come on fast. Vital signs are stable. We will check a CBC and BMP but will order a point of care creatinine in order to get this CT soft tissue neck done quicker. Patient cbc and creatinine showed no concerning findings. We still waiting for the rest the BMP and the imaging to be done. Patient was signed out to my colleague Dr. Beckman pending CT scan results. <Moises Springer DO - Last Filed: 08/05/23 23:39> Lab Data Labs: Lab Results 08/05/23 Range/Units 23:15 WBC 8.39 (4.50-11.00) K/uL RBC 4.58 (4.00-5.20) m/uL Hgb 14.9 (12.0-16.0) gm/dL Hct 43.0 (33.0-51.0) % MCV 94 (80-100) fL MCH 33 (26-34) pg MCHC 35 (32-36) gm/dL RDW Coeff of Royal 11.8 (11.5-15.5) % Plt Count 239 (140-440) K/uL Neut % (Auto) 50.8 (42.0-72.0) % Lymph % (Auto) 40.8 (20-44) % [place] % (Auto) 5.7 (0.0-11.0) % Eos % (Auto) 1.7 (0.0-7.0) % Baso % (Auto) 0.5 (0.0-3.0) % Neut # (Auto) 4.27 (1.7-7.0) K/uL Lymph # (Auto) 3.42 H (0.90-2.90) K/uL [place] # (Auto) 0.50 (0.00-0.90) K/UL Eos # (Auto) 0.14 (0.00-0.50) K/uL Baso # (Auto) 0.04 (0.00-0.30) K/uL Abs Immat Gran (auto) 0.04 (0.00-0.30) K/uL Imm/Tot Granulo (auto) 0.5 % Sodium 139 (135-149) mmol/L Potassium 3.5 L (3.6-5.1) mmol/L Chloride 107 (96-114) mmol/L Carbon Dioxide 27 (20-32) mmol/L Anion Gap 5 L (7-15) mEq/L BUN 20 (7-30) mg/dL Creatinine 0.8 (0.5-1.5) mg/dL Estimated Creat Clear 46.90 Estimated GFR 78 ml/min Glucose 176 H (60-115) mg/dL Calcium 9.3 (8.4-10.6) mg/dL POC Creatinine 0.9 (0.6-1.3) mg/dl <Moises Springer, DO - Last Filed: 08/05/23 23:39> Lab Results 08/05/23 Range/Units 23:15 WBC 8.39 (4.50-11.00) K/uL RBC 4.58 (4.00-5.20) m/uL Hgb 14.9 (12.0-16.0) gm/dL Hct 43.0 (33.0-51.0) % MCV 94 (80-100) fL MCH 33 (26-34) pg MCHC 35 (32-36) gm/dL RDW Coeff of Royal 11.8 (11.5-15.5) % Plt Count 239 (140-440) K/uL Neut % (Auto) 50.8 (42.0-72.0) % Lymph % (Auto) 40.8 (20-44) % [place] % (Auto) 5.7 (0.0-11.0) % Eos % (Auto) 1.7 (0.0-7.0) % Baso % (Auto) 0.5 (0.0-3.0) % Neut # (Auto) 4.27 (1.7-7.0) K/uL Lymph # (Auto) 3.42 H (0.90-2.90) K/uL [place] # (Auto) 0.50 (0.00-0.90) K/UL Eos # (Auto) 0.14 (0.00-0.50) K/uL Baso # (Auto) 0.04 (0.00-0.30) K/uL Abs Immat Gran (auto) 0.04 (0.00-0.30) K/uL Imm/Tot Granulo (auto) 0.5 % Sodium 139 (135-149) mmol/L Potassium 3.5 L (3.6-5.1) mmol/L Chloride 107 (96-114) mmol/L Carbon Dioxide 27 (20-32) mmol/L Anion Gap 5 L (7-15) mEq/L BUN 20 (7-30) mg/dL Creatinine 0.8 (0.5-1.5) mg/dL Estimated Creat Clear 46.90 Estimated GFR 78 ml/min Glucose 176 H (60-115) mg/dL Calcium 9.3 (8.4-10.6) mg/dL POC Creatinine 0.9 (0.6-1.3) mg/dl <Dany Beckman MD - Last Filed: 08/06/23 00:40> Discharge Plan Discharge Clinical Impression: Acute sialoadenitis <Moises Springer DO - Last Filed: 08/05/23 23:39> Patient Disposition: Home, Self-Care <Moises Springer DO - Last Filed: 08/05/23 23:39> Condition: Stable <Moises Springer DO - Last Filed: 08/05/23 23:39> Instructions: Sialoadenitis (ED) <Moises Springer DO - Last Filed: 08/05/23 23:39> Additional Instructions: Eat sour candies to help with the symptoms. Take Tylenol ibuprofen if you develop any pain. Take the clindamycin as directed. Return to emergency department for new or worsening symptoms. <Moises Springer DO - Last Filed: 08/05/23 23:39> Activity Level: Activity as Tolerated <Moises Springer DO - Last Filed: 08/05/23 23:39> Activity as Tolerated <Dany Beckman MD - Last Filed: 08/06/23 00:40> Discharge Diet: Regular <Moises Springer DO - Last Filed: 08/05/23 23:39> Regular <Dany Beckman MD - Last Filed: 08/06/23 00:40> Prescriptions: New clindamycin HCl 300 mg capsule 300 mg PO TID Qty: 15 0RF No Action phentermine 15 mg capsule 15 mg PO QDAY Qty: 30 2RF Rx Instructions: must administer 2 hours after breakfast prednisolone acetate 1 % drops,suspension 1 drp ophthalmic (eye-left) QID <Moises Springer DO - Last Filed: 08/05/23 23:39> Follow Up/Referrals: Jeovanny Tavares MD [Staff Physician] - Ricardo Sanchez MD [Primary Care Provider] - <Moises Springer DO - Last Filed: 08/05/23 23:39> Stand Alone Forms: [employer] Info Instructions <Moises Springer DO - Last Filed: 08/05/23 23:39>
[2023-08-05 23:20] LABS: Creatinine, Point-of-Care* 0.9 mg/dl (0.6-1.3)
[2023-08-05 23:22] LABS: Basophils Absolute Auto 0.04 K/uL (0.00-0.30); Basophils Percent Auto 0.5 % (0.0-3.0); Eosinophils Absolute Auto 0.14 K/uL (0.00-0.50); Eosinophils Percent Auto 1.7 % (0.0-7.0); Hemoglobin* 14.9 gm/dL (12.0-16.0); Immature Granulocytes Abs Auto 0.04 K/uL (0.00-0.30); Immature Granulocytes Pct Auto 0.5 %; Lymphocytes Absolute Auto 3.42 K/uL (0.90-2.90); Lymphocytes Percent Auto 40.8 % (20-44); Mean Corpuscular HGB Conc 35 gm/dL (32-36); Mean Corpuscular Hemoglobin 33 pg (26-34); Mean Corpuscular Volume 94 fL (80-100); Monocytes Percent Auto 5.7 % (0.0-11.0); Neutrophils Absolute Auto 4.27 K/uL (1.7-7.0); Neutrophils Percent Auto 50.8 % (42.0-72.0); Platelet Count* 239 K/uL (140-440); RDW Coefficient of Variation % 11.8 % (11.5-15.5); Red Blood Count 4.58 m/uL (4.00-5.20); Slide Review Reflex No; White Blood Count* 8.39 K/uL (4.50-11.00)
--- OUTSIDE RECORDS SUMMARY | 2023-08-05 23:23 | XMS_ITS | Encounter Summary ---
Author Name Unknown [facility] Address [address], [place] [address] Care Team Providers Care Multimedia Journalist Name Role Phone Unavailable Primary Care Provider Unavailabl e Reason for Visit * Procedure/Equipment (Routine) - Incomplete Specialty Diagnoses / Procedures Referred By Contac t Referred To Contact Procedures Foreign Image(S) XR Wrist Rt Provider, [facility] [address] [place] [address] Referral ID Status Reason Start Date Expiration Date V isits Requested Visits Authorized [id number] Incomplete 07/29/2023 10/27/2024 1 1 Encounter Details Date Type Department Care Team (Late st Contact Info) Description 07/06/2023 12:10 AM CDT Ancillary Procedure [facility] [address] [place] [id number] Provider, [facility] [address] [place] [address] Social History Tobacco Use Types Packs/Day Years Used Date Smoking Tobacco: Never Sex and Gender Information Value Date Recorded Sex Assigned at Not on file Gender Identity Not on file Sexual Orientation Not on file documented as of this encounter Plan of Treatment Not on file documented as of this encounter Procedures Procedure Name Priority Date/Time Associated Diagnosis Comments FOREIGN IMAGE(S) XR WRIST RT Routine 07/06/2023 12:10 AM CDT documented in this encounter Results * Foreign Image(S) XR Wrist Rt (07/06/2023 12:10 AM CDT) Narrative POCT - 07/29/2023 11:37 AM CDT These outside images have been uploaded into PACS. If the results were provided, they will be located in the patient's chart under the Media or Imaging tab. Foreign Images Provider RAD NON-REPORTAB LES POCT documented in this encounter Visit Diagnoses Not on filedocumented in this encounter
--- OUTSIDE RECORDS SUMMARY | 2023-08-05 23:23 | XMS_ITS | Encounter Summary ---
Author Name [facility] Address [address] [place] [address] Care Team Providers Care Site Project Manager Name Role Phone Unavailable Primary Care Provider Unavailabl e Reason for Visit * Procedure/Equipment (Routine) - Incomplete Specialty Diagnoses / Procedures Referred By Contac t Referred To Contact Procedures Foreign Image(S) XR Foot Rt Provider, [facility] [address] [place] [address] Referral ID Status Reason Start Date Expiration Date V isits Requested Visits Authorized [id number] Incomplete 07/29/2023 10/27/2024 1 1 Encounter Details Date Type Department Care Team (Late st Contact Info) Description 07/06/2023 12:20 AM CDT Ancillary Procedure [facility] [address] [place] [id number] Provider, [employer] [address] [place] [address] Social History Tobacco Use Types Packs/Day Years Used Date Smoking Tobacco: Never Sex and Gender Information Value Date Recorded Sex Assigned at Not on file Gender Identity Not on file Sexual Orientation Not on file documented as of this encounter Plan of Treatment Not on file documented as of this encounter Procedures Procedure Name Priority Date/Time Associated Diagnosis Comments FOREIGN IMAGE(S) XR FOOT RT Routine 07/06/2023 12:20 AM CDT documented in this encounter Results * Foreign Image(S) XR Foot Rt (07/06/2023 12:20 AM CDT) Narrative POCT - 07/29/2023 11:41 AM CDT These outside images have been uploaded into PACS. If the results were provided, they will be located in the patient's chart under the Media or Imaging tab. Foreign Images Provider RAD NON-REPORTAB LES POCT documented in this encounter Visit Diagnoses Not on filedocumented in this encounter
--- OUTSIDE RECORDS SUMMARY | 2023-08-05 23:23 | XMS_ITS | Encounter Summary ---
Author Name Unknown [facility] Address [address], [place] [address] Care Team Providers Care Radiation Oncology Therapist Name Role Phone Unavailable Primary Care Provider Unavailabl e Reason for Visit * Procedure/Equipment (Routine) - Incomplete Specialty Diagnoses / Procedures Referred By Contac t Referred To Contact Procedures Foreign Image(S) XR Elbow Rt Provider, [facility] [address] [place] [address] Referral ID Status Reason Start Date Expiration Date V isits Requested Visits Authorized [id number] Incomplete 07/29/2023 10/27/2024 1 1 Encounter Details Date Type Department Care Team (Late st Contact Info) Description 07/06/2023 12:05 AM CDT Ancillary Procedure [facility] [address] [place] [id number] Provider, [facility] [employer] [address] [place] [address] Social History Tobacco Use Types Packs/Day Years Used Date Smoking Tobacco: Never Sex and Gender Information Value Date Recorded Sex Assigned at Not on file Gender Identity Not on file Sexual Orientation Not on file documented as of this encounter Plan of Treatment Not on file documented as of this encounter Procedures Procedure Name Priority Date/Time Associated Diagnosis Comments FOREIGN IMAGE(S) XR ELBOW RT Routine 07/06/2023 12:05 AM CDT documented in this encounter Results * Foreign Image(S) XR Elbow Rt (07/06/2023 12:05 AM CDT) Narrative POCT - 07/29/2023 11:35 AM CDT These outside images have been uploaded into PACS. If the results were provided, they will be located in the patient's chart under the Media or Imaging tab. Foreign Images Provider RAD NON-REPORTAB LES POCT documented in this encounter Visit Diagnoses Not on filedocumented in this encounter
--- OUTSIDE RECORDS SUMMARY | 2023-08-05 23:23 | XMS_ITS | Clinical Summary ---
Author Name Unknown Organization [facility] Address [address] [place] [address] Care Team Providers Care Food Preparation Worker Name Role Phone Unavailable Primary Care Provider Unavailabl e Source Comments You are receiving this document as you are listed as the primary care provider,follow-up provider, or the patient has been referred to you for consultation.This is in compliance with the Medicare and[facility] EHR Incentive Program,which states Providers who transition their patient to another setting of careor provider of care or refers their patient to another provider of care shouldprovide summary care record for each transition of care or referral. [facility] Allergies Active Allergy Reactions Criticality Noted Date Comments Penicillins Anaphylaxis High 09/22/2013 Medications Medication Sig Dispensed Refills Start Date End Date Status naproxen sodium (ANAPROX) 220 MG tablet Take 1 Tablet (220 mg) by mouth two times a day with meals. Active PAXLOVID 150 mg & 100 mg tablet combo pack Take 3 Tablets by mouth two times a day. 09/14/2021 Active dilTIAZem (CARDIZEM) 60 MG tablet Take 1 Tablet (60 mg) by mouth. 03/11/2015 Active RESTASIS 0.05 % eye drops Place 1 Drop into left eye 4 times a day. 04/18/2023 Active ZYMAXID 0.5 % eye drop solution Instill 1 drop into left eye four times a day until the bottle is empty, starting one day prior to surgery. 02/26/2023 Active ketorolac (ACULAR) 0.5 % eye drop solution SMARTSIG:In Eye(s) 06/25/2023 Active ofloxacin (OCUFLOX) 0.3 % eye drop solution Place 1 Drop into left eye 4 times a day. 04/18/2023 Active prednisoLONE acetate (PRED FORTE) 1 % eye drop suspension Place 1 Drop into left eye 4 times a day. 07/03/2023 Active Active Problems No known active problems Encounters Date Type Department Care Team Description 07/29/2023 12:40 PM CDT Ancillary Procedure [facility] [address] [place] [address] 29981 Rose Sesay MD Pain of toe of right foot 07/29/2023 12:35 PM CDT Ancillary Procedure [facility] [address] [place] [address] 14821 Rose Sesay MD Right wrist pain 07/29/2023 10:50 AM CDT Office Visit [facility] [address] [place] [address] 53500 Rose Sesay MD Right wrist pain (Primary Dx); Pain of toe of right foot; Chronic right shoulder pain 07/07/2023 1:30 PM CDT Ancillary Procedure [facility] [address] [place] [address] 24987 Lucius Floyd MD Pain of joint of left ankle and foot 07/07/2023 11:40 AM CDT Office Visit [facility] [address] [place] [address] 76888 Lucius Floyd MD Pain of joint of left ankle and foot (Primary Dx); Right wrist pain; Injury of toe on right foot, initial encounter; Contusion of right knee, initial encounter 07/06/2023 12:20 AM CDT Ancillary Procedure [facility] [address] [place] [address] Provider, Foreign Images 07/06/2023 12:15 AM CDT Ancillary Procedure [facility] [address] [place] [address] 61319 Provider, Foreign Images 07/06/2023 12:10 AM CDT Ancillary Procedure [facility] [address] [place] [address] 75995 Provider, Foreign Images 07/06/2023 12:05 AM CDT Ancillary Procedure [facility] [address] [place] [address] 93820 Provider, Foreign Images 07/06/2023 Ancillary Procedure [facility] [address] [place] [address] [place] [address] Provider, Foreign Images from Last 3 Months Social History Tobacco Use Types Packs/Day Years Used Date Smoking Tobacco: Never Sex and Gender Information Value Date Recorded Sex Assigned at Not on file Gender Identity Not on file Sexual Orientation Not on file Last Filed Vital Signs Vital Sign Reading Time Taken Comments Blood Pressure - - Pulse - - Temperature 36.4 ??C (97.5 ??F) 07/29/2023 11:18 AM C DT Respiratory Rate - - Oxygen Saturation - - Inhaled Oxygen Concentration - - Weight 88.5 kg (195 lb) 07/07/2023 12:20 PM CDT Height 165.1 cm (5' 5) 07/07/2023 12:20 PM CDT Body Mass Index 32.45 07/07/2023 12:20 PM CDT Plan of Treatment Health Maintenance Due Date Last Done Comments Colon Cancer Screening Plan Due 1950 Hep C Screening (Preventive Services) 1950 Medicare Annual Wellness Visit 1950 Mammogram 1950 Cholesterol 1994 Dexa 2014 COVID-19 Vaccine ( - 2022- season) 2022 07/14/2020, 06/23/2020 DTaP/Tdap/Td (2 - Tdap) 01/18/2026 01/19/2016, 12/09 Pneumococcal 65+ Yrs Completed 04/07/2018, 01/31/20 17 HepA Aged Out 05/18/2019, 12/09/2002 No lo nger eligible based on patient's age to complete this topic Zoster/Shingles Completed 11/12/2022, 08/19/2022 Influenza Completed 03/20/2023, 01/19, 01/15/2021, Additional history exists HepB Aged Out No longer eligi ble based on patient's age to complete this topic Hib Aged Out No longer eligi ble based on patient's age to complete this topic IPV (Polio) Aged Out No longer eligi ble based on patient's age to complete this topic MCV4 Aged Out No longer eligi ble based on patient's age to complete this topic Procedures Procedure Name Priority Date/Time Associated Diagnosis Comments XR TOE RT 1ST GREAT 3 VIEWS Routine 07/29/2023 12:41 PM CDT Pain of toe of right foot XR WRIST RT 3+ VIEWS Routine 07/29/2023 12:40 PM CDT Right wrist pain XR FOOT 3+ VIEWS/ANKLE 2 VIEWS SERIES LT Routine 07/07/2023 1:40 PM CDT Pain of joint of left ankle and foot FOREIGN IMAGE(S) XR FOOT RT Routine 07/06/2023 12:20 AM CDT FOREIGN IMAGE(S) XR KNEE RT Routine 07/06/2023 12:15 AM CDT FOREIGN IMAGE(S) XR WRIST RT Routine 07/06/2023 12:10 AM CDT FOREIGN IMAGE(S) XR ELBOW RT Routine 07/06/2023 12:05 AM CDT FOREIGN IMAGE(S) XR SHOULDER RT Routine 07/06/2023 12:00 AM CDT from Last 3 Months Results * XR Toe Rt 1st Great 3 Views (07/29/2023 12:41 PM CDT) Anatomical Region Laterality Modality Lower Extremity, Foot, Foot & Ankle Digital Radiography 07/29/2023 12:3 0 PM CDT Impressions 07/29/2023 1:55 PM CDT COMPARISON: ??07/06/2023 outside right foot x-rays. FINDINGS: ??Oblique intra-articular fracture involving the medial aspect of the base of the first proximal phalanx redemonstrated. Minimal less than 1 mm cortical offset at the fracture site with some likely slight resorption at the fracture site as well. No dislocation. Degenerative changes of the first MTP joint redemonstrated. Narrative Procedure Note Srikanth Mcneal MD - 07/29/2023 IMPRESSION COMPARISON: 07/06/2023 outside right foot x-rays. FINDINGS: Oblique intra-articular fracture involving the medial aspect ofthe base of the first proximal phalanx redemonstrated. Minimal less than 1mm cortical offset at the fracture site with some likely slight resorptionat the fracture site as well. No dislocation. Degenerative changes of thefirst MTP joint redemonstrated. Rose Sesay MD RAD GD * XR Wrist Rt 3+ Views (07/29/2023 12:40 PM CDT) Anatomical Region Laterality Modality Upper Extremity, Wrist Digital R adiography 07/29/2023 12:3 0 PM CDT Impressions 07/29/2023 1:53 PM CDT COMPARISON: ??07/06/2023. FINDINGS: ?? Nondisplaced transverse fracture of the distal right radius is not significantly changed. Mild healing periosteal reaction along the medial cortex. Degenerative changes first CMC and STT joints. Normal alignment. Demineralization. Narrative Procedure Note Frantz Lo MD - 07/29/2023 IMPRESSION COMPARISON: 07/06/2023. FINDINGS: Nondisplaced transverse fracture of the distal right radius isnot significantly changed. Mild healing periosteal reaction along themedial cortex. Degenerative changes first CMC and STT joints. Normalalignment. Demineralization. Rose Sesay MD RAD GD * XR Foot 3+ Views/Ankle 2 Views Series Lt (07/07/2023 1:40 PM CDT) Anatomical Region Laterality Modality Lower Extremity, Foot, Ankle Dig ital Radiography 07/07/2023 1:33 PM CDT Impressions 07/07/2023 2:21 PM CDT COMPARISON: ??None. FINDINGS: There is moderate to advanced degenerative arthritis in the left first MTP joint. There are mild degenerative changes in scattered IP and midfoot joints. No evidence of fracture. Ankle mortise is symmetric. Moderate-sized plantar calcaneal spur. Narrative Procedure Note Deven Hunt MD - 07/07/2023 IMPRESSION COMPARISON: None. FINDINGS: There is moderate to advanced degenerative arthritis in the leftfirst MTP joint. There are mild degenerative changes in scattered IP andmidfoot joints. No evidence of fracture. Ankle mortise is symmetric.Moderate-sized plantar calcaneal spur. Lucius Floyd MD RAD GD * Foreign Image(S) XR Foot Rt (07/06/2023 12:20 AM CDT) Narrative POCT - 07/29/2023 11:41 AM CDT These outside images have been uploaded into PACS. If the results were provided, they will be located in the patient's chart under the Media or Imaging tab. Foreign Images Provider RAD NON-REPORTAB LES Performing Organization Address [facility] de Phone Number POCT * Foreign Image(S) XR Knee Rt (07/06/2023 12:15 AM CDT) Narrative POCT - 07/29/2023 11:39 AM CDT These outside images have been uploaded into PACS. If the results were provided, they will be located in the patient's chart under the Media or Imaging tab. Foreign Images Provider RAD NON-REPORTAB LES Performing Organization Address [facility] de Phone Number POCT * Foreign Image(S) XR Wrist Rt (07/06/2023 12:10 AM CDT) Narrative POCT - 07/29/2023 11:37 AM CDT These outside images have been uploaded into PACS. If the results were provided, they will be located in the patient's chart under the Media or Imaging tab. Foreign Images Provider RAD NON-REPORTAB LES Performing Organization Address [facility] de Phone Number POCT * Foreign Image(S) XR Elbow Rt (07/06/2023 12:05 AM CDT) Narrative POCT - 07/29/2023 11:35 AM CDT These outside images have been uploaded into PACS. If the results were provided, they will be located in the patient's chart under the Media or Imaging tab. Foreign Images Provider RAD NON-REPORTAB LES Performing Organization Address [facility] de Phone Number POCT * Foreign Image(S) XR Shoulder Rt (07/06/2023 12:00 AM CDT) Narrative POCT - 07/29/2023 11:32 AM CDT These outside images have been uploaded into PACS. If the results were provided, they will be located in the patient's chart under the Media or Imaging tab. Foreign Images Provider RAD NON-REPORTAB LES POCT from Last [address] [place] [id number] Sarah Pacheco Personal/Family Self [address] [place] [id number] Sarah Pacheco Personal/Family Self [address] [place] [place] [id number]
--- OUTSIDE RECORDS SUMMARY | 2023-08-05 23:23 | XMS_ITS | Encounter Summary ---
Author Name Unknown Organization [facility] Address [address] [facility] [place] [address] Care Team Providers Care Roll Picker Name Role Phone Unavailable Primary Care Provider Unavailabl e Reason for Visit * Procedure/Equipment (Routine) - Incomplete Specialty Diagnoses / Procedures Referred By Contac t Referred To Contact Diagnoses Pain of toe of right foot Procedures XR Toe Rt 1st Great 3 Views Rose Sesay MD [address] [place] [address] [place] [address] Referral ID Status Reason Start Date Expiration Date V isits Requested Visits Authorized [id number] Incomplete 07/29/2023 10/27/2024 1 1 Encounter Details Date Type Department Care Team (Late st Contact Info) Description 07/29/2023 12:40 PM CDT Ancillary Procedure [facility] [address] [place] [address] Rose Sesay MD [address] [place] [address] [address] [place] [id number] Pain of toe of right foot Social History Tobacco Use Types Packs/Day Years [...] CDT Pain of toe of right foot documented in this encounter Results * XR Toe Rt 1st Great [...] joint redemonstrated. Rose Sesay MD RAD GD documented in this encounter Visit Diagnoses Diagnosis Pain of toe of right foot Pain in limb documented in this encounter
--- OUTSIDE RECORDS SUMMARY | 2023-08-05 23:23 | XMS_ITS | Encounter Summary ---
Author Name Unknown Organization [facility] Address [address] [place] [address] Care Team Providers Care Printing Sign Machine Operator Name Role Phone Unavailable Primary Care Provider Unavailabl e Reason for Visit * Procedure/Equipment (Routine) - Incomplete Specialty Diagnoses / Procedures Referred By Contgamaliel t Referred To Contact Diagnoses Right wrist pain Procedures XR Wrist Rt 3+ Views Rose Sesay MD [address] [place] [address] Referral ID Status Reason Start Date Expiration Date V isits Requested Visits Authorized [id number] Incomplete 07/29/2023 10/27/2024 1 1 Encounter Details Date Type Department Care Team (Late st Contact Info) Description 07/29/2023 12:35 PM CDT Ancillary Procedure [facility] [address] [place] [address] Rose Sesay MD [address] [place] [id number] Right wrist pain Social History Tobacco Use Types Packs/Day Years Used Date Smoking Tobacco: Never Sex and Gender Information Value Date Recorded Sex Assigned at Not on file Gender Identity Not on file Sexual Orientation Not on file documented as of this encounter Plan of Treatment Not on file documented as of this encounter Procedures Procedure Name Priority Date/Time Associated Diagnosis Comments XR WRIST RT 3+ VIEWS Routine 07/29/2023 12:40 PM CDT Right wrist pain documented in this encounter Results * XR Wrist Rt 3+ Views (07/29/2023 [...] Normalalignment. Demineralization. Rose Sesay MD RAD GD documented in this encounter Visit Diagnoses Diagnosis Right wrist pain Pain in joint, forearm documented in this encounter
--- OUTSIDE RECORDS SUMMARY | 2023-08-05 23:23 | XMS_ITS | Encounter Summary ---
Author Name Unknown Organization [facility] Address [address] [address] Care Team Providers Care Building Energy Retrofit Technician Name Role Phone Unavailable Primary Care Provider Unavailabl e Reason for Visit * Procedure/Equipment (Routine) - Incomplete Specialty Diagnoses / Procedures Referred By Contac t Referred To Contact Procedures Foreign Image(S) XR Knee Rt Provider, Foreign Images [address] [place] [address] Referral ID Status Reason Start Date Expiration Date V isits Requested Visits Authorized [id number] Incomplete 07/29/2023 10/27/2024 1 1 Encounter Details Date Type Department Care Team (Late st Contact Info) Description 07/06/2023 12:15 AM CDT Ancillary Procedure [facility] [address] [place] [address] Provider, Foreign Images [address] [place] [address] Social History Tobacco Use Types Packs/Day Years Used Date Smoking Tobacco: Never Sex and Gender Information Value Date Recorded Sex Assigned at Not on file Gender Identity Not on file Sexual Orientation Not on file documented as of this encounter Plan of Treatment Not on file documented as of this encounter Procedures Procedure Name Priority Date/Time Associated Diagnosis Comments FOREIGN IMAGE(S) XR KNEE RT Routine 07/06/2023 12:15 AM CDT documented in this encounter Results * Foreign Image(S) XR Knee Rt (07/06/2023 [...]
--- OUTSIDE RECORDS SUMMARY | 2023-08-05 23:23 | XMS_ITS | Encounter Summary ---
Author Name Unknown [facility] Address [address] [facility] [place] [address] Care Team Providers Care Board Attendant Name Role Phone Unavailable Primary Care Provider Unavailabl e Reason for Referral * Procedure/Equipment (Routine) - Incomplete Specialty Diagnoses / Procedures Referred By Contac t Referred To Contact Diagnoses Pain of joint of left ankle and foot Procedures XR Foot 3+ Views/Ankle 2 Views Series Lt Kyler Floyd MD [address] [facility] [place] [address] Referral ID Status Reason Start Date Expiration Date V isits Requested Visits Authorized [id number] Incomplete 07/07/2023 10/05/2024 1 1 Reason for Visit * Reason Comments Knee Problem Foot Problem 1. Right Knee2. Left Foot3. Right ShoulderDOI: fell yesterdayMOI: fall on concreteHX: 1-2 months both, exacerbated by fall 07/06/2023HX: Left corneal transplant & cataract repair 05/27/2023 Encounter Details Date Type Department Care Team (Late st Contact Info) Description 07/07/2023 11:40 AM CDT Office Visit [facility] [address] [facility] [place] [phone] Kyler Floyd MD [address] [facility] [place] [id number] Pain of joint of left ankle and foot (Primary Dx); Right wrist pain; Injury of toe on right foot, initial encounter; Contusion of right knee, initial encounter Social History Tobacco Use Types Packs/Day Years Used Date Smoking Tobacco: Never Sex and Gender Information Value Date Recorded Sex Assigned at Not on file Gender Identity Not on file Sexual Orientation Not on file documented as of this encounter Last Filed Vital Signs Vital Sign Reading Time Taken Comments Blood Pressure - - Pulse - - Temperature 36.3 ??C (97.4 ??F) 07/07/2023 12:20 PM C DT Respiratory Rate - - Oxygen Saturation - - Inhaled Oxygen Concentration - - Weight 88.5 kg (195 lb) 07/07/2023 12:20 PM CDT Height 165.1 cm (5' 5) 07/07/2023 12:20 PM CDT Body Mass Index 32.45 07/07/2023 12:20 PM CDT documented in this encounter Patient Instructions * Patient Instructions* Debra Alarcon, ATC - 07/07/2023 11:40 AM CDT Thank you for choosing [facility] for your health care visit today. If you have any questions regarding your visit or next steps, please contact us at [phone]. Kyler Floyd MD Medication Requests: Prescriptions are filled on Weekdays before 3:00PM For all medication refills: Request a refill using MyChart or contact your Pharmacy Paperwork Requests: FMLA or disability paperwork can be faxed to: [phone] Please allow 7-10 business days for completion of all paperwork. [facility] Worker's Compensation Services: E-mail Address: [email or web address] What is Know Your Cost? Know Your Cost is a service for patients and patient/members to call and receive personalized cost information and estimates across our care group. The phone number is (COST) Friday - Friday 8 AM to 5 PM To request copies of your medical records, call: [phone] (option 4) Diagnosis: Right Wrist Fracture + Right Toe Fracture + Left Foot Arthritis/Contusion + Knee Pain Arthritis Plan: Follow Up: with primary care physician to discuss home care options - Follow up in 2 weeks with orthopedics for toe fracture and wrist fracture Tylenol - Max Dose: 3000mg/day or take 1000mg 3 times daily Ibuprofen - Max Dose: 2400mg/day or take 600-800mg [address] ice bag (you can use a bag of frozen vegetables or other commercial products) over the injured area. To avoid tissue injury from the cold ice bag, place a cloth or towel between the ice bag andthe skin. It is recommended that ice be applied 3-5 times a day for up to 20 minutes at a time during the first 24-72 hours. Repeat every 2 hours as needed. Brace/DME: You were provided a wrist brace + Postop shoe in clinic today. Please use and care according to instructions given today. This item will be billed to your insurance. If insurance does not cover this item, you will be billed for any uncovered amount. You should wear your items as directedin clinic. documented in this encounter Progress Notes * Kyler Floyd MD - 07/07/2023 12:00 AM CDT NAME: SARAH PACHECO CSN: [id number] CLINIC NOTE DATE OF SERVICE: 07/07/2023 : 1950 CHIEF COMPLAINT: Left foot and right knee pain. 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 She was on a step when she twisted and she fell on her right side on the step. This happened on 07/06/2023. She was seen in the [facility] and was diagnosed with a right toe fracture as well as a right wrist fracture. She states that over the last several weeks she has noticed some discomfort in her left foot where it feels like the foot has been kind of jammed. She feels like she has beenable to handle that, but it has been more swollen with this recent injury. She presents for furtherevaluation wondering if there is something in addition to her right knee and left foot that was going on in addition to the fractures that were identified in the emergency department. REVIEW OF SYSTEMS: No fever or rash. Does have some numbness and tingling. PAST MEDICAL HISTORY: Negative for diabetes. Past history significant for corneal transplant. She is currently undergoing eyedrops for that. She has difficult time placing the eyedrops because of this recent injury and the splint that she has applied to her right wrist. 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 PHYSICAL EXAM: Temperature is 97.4. She is awake, alert female, sitting upright. HEENT: Sclerae nonicteric. She has fair eye contact. VASCULAR: Cap refill is normal. NEUROLOGIC: Sensation is intact to light touch. NEUROLOGIC: She is awake, alert, answers questions appropriately. MUSCULOSKELETAL: Examination of her right knee and left foot reveals no tenderness along the malleoli, Lisfranc joint, base of 5th metatarsal, cuboid, navicular and Lisfranc joint. Ankle range of motion is initiated in all planes. Compartments are soft. MUSCULOSKELETAL: Examination of her right knee, she is nontender along the patellar retinaculum, nontender over the patellar tendon medial and lateral joint line. Extensor mechanism is intact. Range of motion 0 to 90 degrees of knee flexion. Ligamentous exam is grossly normal. She has negative [place]. Reports were obtained, but I was unable to see imaging from the emergency department visit at [facility]. The x-ray of the right elbow, no acute abnormality. X-ray of the right wrist, subtlehyperattenuating linear lesion along the articular surface of the distal radius without discrete cortical step- off may represent a subtle nondisplaced fracture. X-ray of the right knee, no acute bonyabnormality. There is moderate medial joint space compartment narrowing with articular osteophytes seen medially. X-ray of the right foot, nondisplaced intra-articular fracture at the medial base 1stproximal phalanx. X-rays were obtained of the left foot and ankle showing some degenerative changes of the big toe and midfoot. Otherwise, no definitive fracture. ASSESSMENT: Left foot contusion, right knee contusion, right knee osteoarthritis, right wrist fracture, right big toe fracture. PLAN: Educated the patient regarding her condition and management. After discussion, we will get her a new wrist brace for her right wrist as well as a new postop shoe. She can use [id number] pain medication for her pain. I recommended that she reach out to our her primary doctor, Dr. Songout long- term disability that she may need given her difficulty and challenges with regard to care for herself as she lives by herself with these subsequent injuries. She can follow up with Orthopedics in 2 weeks. She verbalized understanding. She should avoid painful activity, use the splints asneeded. She can work on gentle range of motion. Follow up in 2 weeks' time. KYLER FLOYD MD CWM/AQS /[id number] documented in this encounter Plan of Treatment Not on file documented as of this encounter Results * XR Foot 3+ Views/Ankle 2 Views [...] Ankle mortise is symmetric.Moderate-sized plantar calcaneal spur. Kyler Floyd MD RAD GD documented in this encounter Visit Diagnoses Diagnosis Pain of joint of left ankle and foot- Primary Right wrist pain Pain in joint, forearm Injury of toe on right foot, initial encounter Contusion of right knee, initial encounter Pain of joint of left ankle and foot documented in this encounter
--- OUTSIDE RECORDS SUMMARY | 2023-08-05 23:23 | XMS_ITS | Encounter Summary ---
Author Name Unknown Organization [facility] Address [address] [place] [address] Care Team Providers Care All Purpose Clerk Name Role Phone Unavailable Primary Care Provider Unavailabl e Reason for Visit * Procedure/Equipment (Routine) - Incomplete Specialty Diagnoses / Procedures Referred By Contac t Referred To Contact Diagnoses Pain of joint of left ankle and foot Procedures XR Foot 3+ Views/Ankle 2 Views Series Lt Lucius Floyd MD [address] [facility] [place] [address] Referral ID Status Reason Start Date Expiration Date V isits Requested Visits Authorized [id number] Incomplete 07/07/2023 10/05/2024 1 1 Encounter Details Date Type Department Care Team (Late st Contact Info) Description 07/07/2023 1:30 PM CDT Ancillary Procedure [facility] [address] [facility] [place] [address] Lucius Floyd MD [address] [facility] [place] [address] Pain of joint of left ankle and foot Social History Tobacco Use Types Packs/Day Years Used Date Smoking Tobacco: Never Sex and Gender Information Value Date Recorded Sex Assigned at Not on file Gender Identity Not on file Sexual Orientation Not on file documented as of this encounter Plan of Treatment Not on file documented as of this encounter Procedures Procedure Name Priority Date/Time Associated Diagnosis Comments XR FOOT 3+ VIEWS/ANKLE 2 VIEWS SERIES LT Routine 07/07/2023 1:40 PM CDT Pain of joint of left ankle and foot documented in this encounter Results * XR Foot 3+ [...] calcaneal spur. Lucius Floyd MD RAD GD documented in this encounter Visit Diagnoses Diagnosis Pain of joint of left ankle and foot documented in this encounter
--- OUTSIDE RECORDS SUMMARY | 2023-08-05 23:23 | XMS_ITS | Clinical Summary ---
Author Name Unknown Organization [facility] Address [place], [place] [address] Care Team Providers Care Emergency Management System Director Name Role Phone Mindi Mejia MD Primary Care Provider [phone] Allergies Active Allergy Reactions Criticality Noted Date Comments Penicillins Edema,Angioedema 02/01/2005 Occurred at age 5 Generalized swelling, skin lesions, swollen joints Medications Medication Sig Dispensed Refills Start Date End Date Status medication order Celestinosusannah - All vitamin, completely balance. 0 10/30/2016 Active estradiol-levonorge strel 0.045mg-0.015 mg/24 hr (CLIMARA PRO) 0.045-0.015 mg/24 hr patch apply 1 patch by transdermal route every week 07/21/2015 Active metoprolol tartrate (LOPRESSOR) 25 mg tabletIndications:S VT (supraventricular tachycardia) (HC) take 1 tab PRN tachycardia 5 tablet. 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 Pulmonary nodule 03/04/2017 Overview: Incidental finding on CT Mar 2017. follow up CT scan 6-12 mos SVT (supraventricular tachycardia) 01/02/2017 Overview: Seen by EP at [facility]. Plan for as needed 25mg metoprolol Abnormal echocardiogram 01/02/2017 Overview: pulm hypertension and tricuspid regurg Tricuspid regurgitation 01/02/2017 SOB (shortness of breath) 01/02/2017 Adenomatous colon polyp Overview: colo 2012. Immunizations Name Administration Dates Next Due HepA-HepB (Twinrix) 05/18/2019 07/17/2019 Hepatitis A (Adult) 12/09/2002 Influenza, High-dose Inactivated 02/19/2019,01/19 Influenza, IIV3 (Age >=3 years) 01/17/2009,01/29 Influenza, Inactivated IIV3 (Age 65+ Years) Preserv Free 04/07/2018 Pneumococcal Poly,23-Valent (Pneumovax) 04/07/20 18 Pneumococcal conj 13-Valent (Prevnar 13) 017 Td (Age >=7 Years) 12/09/2002 Tdap 01/19/2016 Typhoid (injectable) 05/18/2019 Family History Medical History Relation Name Comments Other Father alzheimer Cancer Maternal Grandmother stomach Other Mother stress/depressi on/angioplasty/cholecystecto my Relation Name Status Comments Father Maternal Grandmother Mother Social History Tobacco Use Types Packs/Day Years Used Date Smoking Tobacco: Never Smokeless Tobacco: Never Tobacco Cessation:Counseling Given: Yes Alcohol Use Standard Drinks/Week Comments Yes 0 (1 standard drink = 0.6 oz pur e alcohol) social PHQ-2 Answer Date Recorded PHQ-2 Score 0 06/21/2018 Social Connections Answer Date Recorded Frequency of Communication with Friends and Fami ly Not on file 04/21/2021 Financial Resource Strain Answer Date R ecorded Difficulty of Paying Living Expenses Not on file 04/21/2021 Difficulty of Paying Living Expenses Not on file 04/21/2021 Sex and Gender Information Value Date Recorded Sex Assigned at Not on file Gender Identity Not on file Sexual Orientation Not on file Obstetrics History Last Filed Vital Signs Vital Sign Reading Time Taken Comments Blood Pressure 110/78 05/18/2019 3:59 PM MATERIALS PLANNER Pulse 69 05/18/2019 3:59 PM MATERIALS PLANNER Temperature 37 ??C (98.6 ??F) 09/22/2014 1:45 PM CDT Respiratory Rate 16 04/29/2018 1:07 PM MATERIALS PLANNER Oxygen Saturation 98% 05/18/2019 3:59 PM MATERIALS PLANNER Inhaled Oxygen Concentration - - Weight 85.2 kg (187 lb 12.8 oz) 05/18/2019 3:59 PM MATERIALS PLANNER Height 173.4 cm (5' 8.27) 05/18/2019 3:59 PM CS T Body Mass Index 28.33 05/18/2019 3:59 PM MATERIALS PLANNER Plan of Treatment Health Maintenance Due Date Last Done Comments Zoster (shingles) series for age 50+ (1 of 2) 09/21/1999 DEXA/DXA scan for age 65+ 2014 Mammogram for age 45-75 10/17/2018 10/18/19 18, 08/03/2015, 12/29/2012, Additional history exists Depression screening for age 12+ 04/29/2019 04/29/2018, 10/30/2016, 07/18/2015 Medicare Wellness for age 65+ 04/30/2019 04/29/2018 BMI (ht and wt on same day) for age 18+ 05/18/2020 05/18/2019, 04/29/2018, 03/07/2017, Additional history exists COVID-19 vaccine series (2022- season) 2022 Colonoscopy through age 75 02/25/202302/25, 12/23/2002, 09/21/1999 Lipids for age 45-75 04/29/2023 04/29/2018, 03/27/2012, 05/31/2011, Additional history exists Influenza for age 65+ 12/21/2023 02/19/2019 , 04/07/2018, 01/29/2017, Additional history exists Tetanus booster 01/18/2026 01/19/2016, 12/09/2002 Hepatitis C screening for ag e 18-79 Completed 10/20/2006 Tdap Completed 01/19/2016 Pneumococcal series for age 65+ Completed 8, 01/30/2017 Medical Devices Implanted Type Area High Pressure Firer Device Identifier Shelf Expiration Date Model / Serial / Lot M.062 Anjel - [id number] Implanted:Qty: 1 on 04/02/2012 by Arnol Maria MD at [facility] Ortho Imp., Pins, Rods, Wires Left: Wrist .062 ANJEL / [id number] / Wire Kirs .[id number] [facility] [id number] - [id number] Implanted:Qty: 1 on 04/02/2012 by Arnol Maria MD at [facility] Left: Wrist [id number] / / Procedures Procedure Name Priority Date/Time Associated Diagnosis Comments LIPID PANEL W REFLEX MEASURED LDL Routine 04/29/2018 2:16 PM MATERIALS PLANNER Medicare annual wellness visit, subsequent SCAN-MAMMOGRAPHY REPORT 10/17/2017 12:00 AM CDT SCAN-COLONOSCOPY 02/25/2013 8:00 AM MATERIALS PLANNER ANTI HCV Routine 10/20/2006 1:05 PM CDT Malaise And Fatigue from Last 3 Months or Most Recently Relevant to Health Maintenance Results * LIPID PANEL W REFLEX MEASURED LDL (04/29/2018 2:16 PM MATERIALS PLANNER) CHOLESTEROL,TOTAL 193 100 - 199 mg/dL 04/29/2018 11:47 PM MATERIALS PLANNER [facility] TRIGLYCERIDES 121 <150 mg/dL 04/29/2018 11:47 PM [facility] HDL CHOLESTEROL 51 >40 mg/dL 9 11:47 PM [facility] NON-HDL CHOLESTEROL 142 <145 mg/dl 04/29/2018 11:47 PM [facility] CHOL/HDL RATIO 3.78 <4.50 04/29/2018 11:47 PM [facility] LDL CHOLESTEROL 118 <=130 mg/dL 04/29/2018 11:47 PM [facility] PROVIDER ORDERED STATUS RANDOM 04/29/2018 11:47 PM [facility] Blood BLOOD SPECIMEN / Unknown Butterfly / Unknown 04/29/2018 2:16 PM MATERIALS PLANNER 04/29/2018 2:16 PM MATERIALS PLANNER Mindi Mejia MD CHEMISTRY [facility] [address] [place] [address], * SCAN-MAMMOGRAPHY REPORT (10/17/2017 12:00 AM CDT) Anatomical Region Laterality Modality Other Scanner OTHER * SCAN-COLONOSCOPY (02/25/2013 8:00 AM MATERIALS PLANNER) Narrative Transcriptions Mehdi Jacinto MD - 02/25/2013 7:42 AM CST [facility] [address] [place] [address], [address], [place] [id number] Patient Name: Sarah Pacheco Gender: Female Exam Date: 02/25/2013 Visit Number: [id number] Age: 62 Years 3 Months Date of : 1950 Attending MD: Mehdi Jacinto MD Medical Record#: [id number] ----- Procedure: Colonoscopy Indications: Colorectal cancer screening Referring MD: Devon Barboza MD Primary MD: Devon Barboza MD Medications: Intra Procedure Medications: Fentanyl given 0.1 mg by IV Midazolam given 3 mg by IV Complications: No immediate complications Procedure: An examination of the heart and lungs was performed and found to be withinacceptable limits. The patient was therefore deemed a reasonablecandidate for endoscopy and conscious sedation. The risks and benefits of the procedure were explained to the patient.After obtaining informed consent, I medicated the patient and passed thescope without difficulty via the rectum to the ileum. The appendicealorifice and ic valve were identified. The scope was retroflexed duringthe examination The quality of the prep was excellent(Miralax/Gatorade/2 tablets Bisacodyl/Magnesium Citrate). This was a complete examination throughout the entire colon. Findings: Polyp location: sigmoid. Quantity: 1. Size: 3 mm. Polyp shape:sessile. Maneuver: polypectomy was performed with a cold biopsy forceps. Removal: complete. Retrieval: complete. Bleeding: none. Diverticulosis. Location: - sigmoid. Description: mild. Size:small. Quantity: few. No inflammation present. Hemorrhoids. Internal hemorrhoids without bleeding. Impression: Polyp Hemorrhoids Orders: Patient Education given to patient: Colon: Colon Cancer Prevention Colon Polyps Diverticulosis/Diverticulitis Hemorrhoids High Fiber Diet Final Plan: Repeat colonoscopy in 10 years for screening. If you have signs orsymptoms of lower GI illness or a new diagnosis of colon cancer in animmediate family member, you should contact [facility] or your primary providerto discuss whether your next exam should be repeated sooner. Return for a colonoscopy in 10 years. We will attempt to contact you at appropriate intervals via U.S. mail. Wemay not be able to find you or contact you at that time, therefore youshould know that the responsibility for following our recommendation restswith you. If you don't hear from us at the time your procedure is due,please contact our office to schedule an appointment. If your contactinformation should change, please contact our office so that we can updateyour record. Plan Comments: _Electronically signed by: Mehdi Jacinto MD 02/25/2013 [facility] [phone] *Portions of this document may have been recorded using electronic voicerecognition technology. Mehdi Jacinto MD OTHER * ANTI HCV (10/20/2006 1:05 PM CDT) ANTI HCV Non-reacti ve [facility] Blood specimen (specimen) BLOOD SPECIMEN / Unknown 10/20/2006 1:05 PM CDT 10/20/2006 1:04 PM CDT Uma SHEN S[facility] OUTS [facility] [place] ZIP [address] [address] from Last 3 Months or Most Recently Relevant to Health Maintenance Advance Directives * Full Code (Latest Code Status on File) Date Activated Date Inactivated Comments 04/02/2012 10:19 AM 04/02/2012 5:06 PM * Full Code Date Activated Date Inactivated Comments 06/04/2011 9:21 AM 06/04/2011 1:41 PM * Full Code Date Activated Date Inactivated Comments 06/04/2011 6:47 AM 06/04/2011 9:21 AM Care Teams Emergency Management System Director Relationship Specialty Start Date End Date Mindi Mejia MD [address] [place] [address] PCP - General Internal Medicine 02/19/17
--- OUTSIDE RECORDS SUMMARY | 2023-08-05 23:23 | XMS_ITS | Encounter Summary ---
Author Name Unknown Organization [facility] Address [address] [facility] [place] [address] Care Team Providers Care Getter Welder Name Role Phone Unavailable Primary Care Provider Unavailabl e Reason for Referral * Procedure/Equipment (Routine) - New Request Specialty Diagnoses / Procedures Referred By Contac t Referred To Contact Diagnoses Chronic right shoulder pain Rose Xavier MD [address] [facility] [place] [address] POS NOT ON FILE Referral ID Status Reason Start Date Expiration Date V isits Requested Visits Authorized [id number] New Request 07/29/2023 01/25/2024 1 1 Scheduling Instructions This order is your clinician's recommendation for a service and is not an insurance referral which authorizes payment. The recommended service and/or location may not be covered by your insurance plan. Please call the number on your insurance card to find out your specific benefits and coverage for the recommended services and/or location. If you need help scheduling the recommended services, please ask your clinician's staff to assist you. Question Answer Appointment Urgency? Non-Urgent Reason for visit? fibromyalgia and shoulder pain Comments * Procedure/Equipment (Routine) - New Request Specialty Diagnoses / Procedures Referred By Contac t Referred To Contact Diagnoses Chronic right shoulder pain Rose Xavier MD [address] [facility] [place] [address] Referral ID Status Reason Start Date Expiration Date V isits Requested Visits Authorized [id number] New Request 07/29/2023 10/27/2024 1 1 Scheduling Instructions If scheduling assistance is needed, please inquire with the medical office staff upon exiting your appointment or contact the ordering clinic for recommended locations. This recommended service/s may not be covered by your insurance coverage. To find out your specific benefit coverage, please call the number on your insurance card. Question Answer Appointment Urgency? Non-Urgent * Therapies (Routine) - New Request Specialty Diagnoses / Procedures Referred By Andrew stout Referred To Contact Diagnoses Chronic right shoulder pain Rose Xavier MD [address] [facility] [place] [address] Referral ID Status Reason Start Date Expiration Date V isits Requested Visits Authorized [id number] New Request 07/29/2023 07/28/[phone] Scheduling Instructions Your clinician recommended an appointment with Physical Therapy and Rehabilitation Services. You can quickly make your appointment online at [employer]/schedule. You can also call [phone] for help scheduling your appointment. We suggest you call your health insurance company about your coverage and benefits for this appointment. Question Answer Appointment Urgency? Non-Urgent Requested Services Evaluate and treat May use saline for irrigation or cleansing Yes RFV/Clin Data h/o frozen shoulder dexamethasone use Yes May check glucose per protocol (see policy link below) or if patient has symptoms? Yes * Procedure/Equipment (Routine) - Incomplete Specialty Diagnoses / Procedures Referred By Andrew stout Referred To Contact Diagnoses Pain of toe of right foot Procedures XR Toe Rt 1st Great 3 Views Rose Xavier MD [address] [facility] [place] [address] Referral ID Status Reason Start Date Expiration Date V isits Requested Visits Authorized [id number] Incomplete 07/29/2023 10/27/2024 1 1 * Procedure/Equipment (Routine) - Incomplete Specialty Diagnoses / Procedures Referred By Andrew stout Referred To Contact Diagnoses Right wrist pain Procedures XR Wrist Rt 3+ Views Rose Xavier MD [address] [facility] [place] [address] Referral ID Status Reason Start Date Expiration Date V isits Requested Visits Authorized [id number] Incomplete 07/29/2023 10/27/2024 1 1 Reason for Visit * Reason Comments Follow-up On going pain on rig ht side exacerbated by fall at work 07/06/23 Encounter Details Date Type Department Care Team (Late st Contact Info) Description 07/29/2023 10:50 AM CDT Office Visit [facility] [address] [place] [address] Rose Xavier MD [address] [facility] [address] [place] [address] Right wrist pain (Primary Dx); Pain of toe of right foot; Chronic right shoulder pain Social History Tobacco Use Types Packs/Day [...] - Inhaled Oxygen Concentration - - Weight - - Height - - Body Mass Index - - documented in this encounter Patient Instructions * Patient Instructions* Dre Bates RN - 07/29/2023 10:50 AM CDT Thank you for choosing [facility] for your health care visit today. If you have any questions regarding your visit or next steps, please contact us at [phone]. Rose Xavier MD Medication Requests: Prescriptions are filled on Weekdays before 3:00PM For all medication refills: Request a refill using [employer] or contact your Pharmacy Paperwork Requests: FMLA or disability paperwork can be faxed to: [phone] Please allow 7-10 business days for completion of all paperwork. [employer] Worker's Compensation Services: E-mail Address: What is Know Your Cost? Know Your Cost is a service for patients and patient/members to call and receive personalized cost information and estimates across our care group. The phone number is (COST) Friday - Friday 8 AM to 5 PM To request copies of your medical records, call: [phone] (option 4) Diagnosis: Right wrist and toe pain Plan: Follow Up: Return to clinic in 3 week(s) with [facility]. Physical Therapy: Schedule your physical therapy appointment at the senior front end web developer or call [phone]. Brace/DME: Continue wearing the wrist brace at all times and wear the boot when up doing activities. Bring in your paperwork when you get them as soon as you are able to. documented in this encounter Progress Notes * Rose Xavier MD - 07/29/2023 12:00 AM CDT NAME: SARAH PACHECO CSN: [id number] CLINIC NOTE DATE OF SERVICE: 07/29/2023 : 1950 CHIEF COMPLAINT: Followup injury. This is a 72-year-old female, who is very verbose. She has underlying fibromyalgia. She had an injury on July 06, 2023. 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 She was seen in [place] [facility] and today she brought her images that are imported for us evaluate. 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 It does feel tight and justin and irritated. 2.Her right wrist she was told had a fracture. She did not like the big brace because it felt too hot. She has been wearing a very small, very soft sleeve and notes that when she does pushing or pulling or picking something up with her right hand that her right wrist becomes quite painful. 3.Her medial knee radiating up towards her thigh is painful. 4.Her left foot felt like there was a sliding event that happened before this injury and she does not hurt but is nervous about it. REVIEW OF SYSTEMS: No fevers, chills, rash, or skin changes. SOCIAL HISTORY: She is retired except she is working for [employer] for side money. PHYSICAL EXAM: Temperature 97.5, height 5 feet 5 inches, weight 195. Rates the pain as 5/10. Examination of her right foot shows her great toe to be ecchymotic. She is tender along the great toe proximal phalanx. She is slightly tender at the 1st MTP joint. Nontender through the remainder of the foot. Her left foot has normal appearance. No focal areas of tenderness. Her right knee has normal appearance, she is tender along the medial joint line. Her ligament exam is normal. Hip range of motionwith log roll testing reproduces no symptoms. Her right wrist has swelling, has ecchymosis, and is very tender with palpation along the distal radius. She has lost range of motion in the wrist. Her skin and sensation are intact. Her right shoulder is tender in the subacromial space. Her neck has full range of motion, but reproduces some symptoms into both of her shoulders as she extends her neck.Her right shoulder has pain with abduction and forward flexion. Outside images from [place] were imported today and are reviewed. New radiographs today of her fractures are obtained. Radiograph of right great toe; Findings: Oblique intra-articular fracture involving the medial aspect of the base of the proximal phalanx redemonstrated. Minimal, less than 1 minimally cortical offset at the fracture site with some likely slight resorption of the fracture siteas well. No dislocation. Some degenerative change in the 1st MTP joint. Radiograph right wrist; Finding: Nondisplaced transverse fracture distal radius, not significantly changed. Mild periosteal reaction, medial cortex. Degenerative change both CMC and STT joint. Normalalignment with demineralization. ASSESSMENT: 1.Radius fracture, right thigh. 2.Great toe fracture, right thigh. 3.Shoulder contusion with previous frozen shoulder lasting 3 years. PLAN: 1.Right wrist needs to be much more supported. I want her wearing either a cast, which she says shecannot do or the stiff brace she was given here all except for hygiene over the next 3 weeks. 2.She is wearing a postop shoe for her broken right toe. She needs to continue doing so. The wrist fracture and the great toe fracture will significantly inhibit her ability to do self-cares. She will not be able to functionally drive a car, to walk any extended amount of time, to lift, pull, pinch, or twist with her right wrist fracture. 3.She will need physical therapy. We will consider Lao massage where she does some shoulder mobility exercises as well. She may have some insurance paperwork that she needs to send over so that we can fill it out. My expected time for her is 6 weeks of fracture protection with immobilization of her right wrist and her right great toe followed by 6 weeks of therapy, particularly aimed at her right wrist. ROSE XAVIER MD HDT/AQS /[id number] documented in this encounter Plan of Treatment Scheduled Referrals Name Type Priority Associated Diagnoses Orde r Schedule Physical Therapy Referral Routine Chronic right shoulder pain Ordered: 07/29/2023 Massage Therapy Referral Routine Chronic right shoulder pain Ordered: 07/29/2023 Massage Therapy Referral Routine Chronic right shoulder pain Ordered: 07/29/2023 documented as of this encounter Results * XR Toe Rt [...] changes of thefirst MTP joint redemonstrated. Rose Xavier MD RAD GD * XR Wrist Rt [...] CMC and STT joints. Normalalignment. Demineralization. Rose Xavier MD RAD GD documented in this encounter Visit Diagnoses Diagnosis Right wrist pain- Primary Pain in joint, forearm Pain of toe of right foot Pain in limb Chronic right shoulder pain Pain in joint, shoulder region Right wrist pain Pain in joint, forearm Pain of toe of right foot Pain in limb documented in this encounter
--- OUTSIDE RECORDS SUMMARY | 2023-08-05 23:24 | XMS_ITS | Encounter Summary ---
Author Name Unknown Organization [facility] Address [address], [place] [address] Care Team Providers Care Advertising Sales Agent Name Role Phone Unavailable Primary Care Provider Unavailabl e Reason for Visit * Procedure/Equipment (Routine) - Incomplete Specialty Diagnoses / Procedures Referred By Contac t Referred To Contact Procedures Foreign Image(S) XR Shoulder Rt Provider, [facility] [address] [place] [address] Referral ID Status Reason Start Date Expiration Date V isits Requested Visits Authorized [id number] Incomplete 07/29/2023 10/27/2024 1 1 Encounter Details Date Type Department Care Team (Late st Contact Info) Description 07/06/2023 Ancillary Procedure [facility] [address] [place] [id number] Provider, [facility] [address] [place] [address] Social History Tobacco Use Types Packs/Day Years Used Date Smoking Tobacco: Never Sex and Gender Information Value Date Recorded Sex Assigned at Not on file Gender Identity Not on file Sexual Orientation Not on file documented as of this encounter Plan of Treatment Not on file documented as of this encounter Procedures Procedure Name Priority Date/Time Associated Diagnosis Comments FOREIGN IMAGE(S) XR SHOULDER RT Routine 07/06/2023 12:00 AM CDT documented in this encounter Results * Foreign Image(S) XR Shoulder Rt (07/06/2023 [...]
[2023-08-05 23:36] LABS: Chloride* 107 mmol/L (96-114); Potassium* 3.5 mmol/L (3.6-5.1); Sodium* 139 mmol/L (135-149)
[2023-08-05 23:39] LABS: Anion Gap 5 mEq/L (7-15); Blood Urea Nitrogen* 20 mg/dL (7-30); Carbon Dioxide* 27 mmol/L (20-32); Creatinine* 0.8 mg/dL (0.5-1.5); Estimated Glomerular Filt Rate 78 ml/min
[2023-08-05 23:40] LABS: Calcium* 9.3 mg/dL (8.4-10.6); Glucose* 176 mg/dL (60-115)
[2023-08-06] MEDS: CLINDAMYCIN 150 MG CAPSULE 300 MG PO (00:19)
[2023-08-06 00:54] VITALS: PULSE 81; RESP 18
== END 2023-08-06 01:06 | disposition home or self-care (01) ==
PROVIDERS: Student in an Organized Health Care Education/Training Program; Emergency Provider Family Medicine; PCP Internal Medicine
DX: K11.21 Acute sialoadenitis (principal)
CPT/HCPCS: 36415; 70491; 80048; 82565; 85025; 99283; 99284; A9270; Q9967

== ENCOUNTER 2023-12-14 10:24 | Emergency (ER) | payer MEDICARE, BC, SELFPAY ==
[2023-12-14] VITALS (18 sets, daily range): BP systolic 141–168; BP diastolic 72–96; PULSE 79–87; RESP 16–20; TEMP 37.4; O2SAT 96–100; BMI 31.1
--- NOTE | 2023-12-14 11:16 | CRLHL7_ITS ---
For Patients: As a result of the Cures Act, medical imaging exams and procedure reports are released immediately into your electronic medical record. You may view this report before your referring provider. If you have questions, please contact your health care provider. INDICATION: Chest pain. TECHNIQUE: Chest 2 views. COMPARISON: April 11, 2023. FINDINGS: Cardiovascular and mediastinum: Heart size and vasculature are normal in caliber and appearance. Lungs and pleural spaces: Lungs are clear. No sign of infiltrate or mass. No sign of pleural effusion. No pneumothorax. Bones and soft tissues: No significant findings. IMPRESSION: No acute or significant findings. Dictated by Bolivar Andujar MD @ 12/14/2023 12:38:48 PM (Electronically Signed)
--- NOTE | 2023-12-14 11:38 | ED_ITS ---
HPI - General Adult General Chief complaint: Chest Pain Stated complaint: heartburn, back/abd pain Time Seen by Provider: 12/14/23 11:02 Source: patient Mode of arrival: ambulatory Limitations: no limitations History of Present Illness HPI narrative: 73 year old female coming in today concerned about feeling unwell. Patient states that last night around 11:30 p.m. she developed a bandlike discomfort around the lower part part of her chest/upper abdomen. She stated that she developed a ?swirling discomfort of the abdomen. She states that it felt that she had a ?rectangular bruise on the inside of her abdomen. When asked her to clarify with this means, she states that she can not. When I ask her to point to where she feels the discomfort, she points to the epigastric region. She denies nausea or vomiting. No fevers or chills. She states that sometimes that discomfort would radiate into the middle of her chest and cause a burning sensation across her back from shoulder blade to shoulder blade. This burning sensation, however, is not new and she has had in the past. This comes and goes. Nothing seems to make it better or worse. She had milk and water this morning in her symptoms are unchanged. She is not short of breath. She has not been coughing. She denies pain in her neck. Discomfort is not associated with physical activity. Despite this going on, she was able to sleep last night. Patient does not take any medications. Past surgical history includes appendectomy and cholecystectomy. Related Data Home Medications ?Medication ?Instructions ?Recorded ?Confirmed prednisolone acetate 1 % eye 1 drp ophthalmic (eye-left) QID 07/06/23 12/14/23 drops,suspension betamethasone dipropionate 0.05 % topical PRN 12/14/23 lotion cyclosporine 0.05 % eye drops in a drp 12/14/23 dropperette (Restasis) diltiazem HCl 60 mg tablet mg 12/14/23 gatifloxacin 0.5 % eye drops drp 12/14/23 ketorolac 0.5 % eye drops drp 12/14/23 metoprolol tartrate 25 mg tablet mg 12/14/23 Previous Rx's ?Medication ?Instructions ?Recorded phentermine 15 mg capsule 15 mg PO QDAY #30 caps 08/04/23 Allergies Allergy/AdvReac Type Severity Reaction Status Date / Time Penicillins Allergy Anaphylaxis Verified 10/30/23 11:23 Review of Systems Status of ROS: Reports: 10 or more systems reviewed and unremarkable except as noted in History and below PFSH [facility] Medical History Dysphagia ?R13.10 - Dysphagia, unspecified (ICD-10) Obesity ?E66.9 - Obesity, unspecified (ICD-10) Acute bronchitis ?J20.9 - Acute bronchitis, unspecified (ICD-10) Visual changes ?H53.9 - Unspecified visual disturbance (ICD-10) Cataracts, bilateral ?H26.9 - Unspecified cataract (ICD-10) Healthcare maintenance ?Z00.00 - Encounter for general adult medical examination without abnormal findings (ICD-10) Achilles tendinitis ?M76.60 - Achilles tendinitis, unspecified leg (ICD-10) Weight gain ?R63.5 - Abnormal weight gain (ICD-10) Hearing loss ?H91.90 - Unspecified hearing loss, unspecified ear (ICD-10) Osteoarthritis ?M19.90 - Unspecified osteoarthritis, unspecified site (ICD-10) ANGEL LUIS (obstructive sleep apnea) ?G47.33 - Obstructive sleep apnea (adult) (pediatric) (ICD-10) Surgical History History of tonsillectomy ?Z90.89 - Acquired absence of other organs (ICD-10) History of appendectomy ?Z90.49 - Acquired absence of other specified parts of digestive tract (ICD- 10) History of cholecystectomy ?Z90.49 - Acquired absence of other specified parts of digestive tract (ICD- 10) Social History Smoking Status: Never smoker Do you use any of these nicotine containing products: None Second hand tobacco smoke exposure: No How often do you have a drink containing alcohol: never How often do you have six or more drinks on one occasion: Never AUDIT-C Alcohol total score: 0 Non-prescribed substance use: denies use Little interest or pleasure in doing things: not at all Feeling down, depressed, or hopeless: not at all service: No Exam Narrative: Exam Narrative: Well-nourished well-developed patient in no acute distress. Alert and oriented x3. Answers questions appropriately. Mood and affect are appropriate. Patient speaks in full sentences without needing to catch her breath. Patient is lying in bed comfortably. Does not appear ill or toxic. HEENT: Normocephalic atraumatic. Pupils are equally round reactive to light. Extraocular muscles are intact. Conjunctivae are moist without any icterus noted. Moist mucous membranes. Posterior pharynx is normal. Neck is soft without any lymphadenopathy or thyromegaly. No masses are appreciated. Cardiovascular: Heart is regular rate and rhythm S1 and S2 are present without any murmurs. Lungs: Clear to auscultation bilaterally no wheezes rhonchi or rales are appreciated. Patient takes deep breaths without any discomfort. Abdomen: Soft and nondistended with normal bowel sounds. No guarding or rebound. No masses or organomegaly appreciated. She has mild discomfort in the epigastric region. Extremities: Bilateral lower extremities are without edema. Skin: Well perfused without any obvious rashes. Const: Vital Signs, click to edit/add: Vital Signs - 24 hr 12/14/23 10:28 12/14/23 11:13 12/14/23 11:15 Temperature 99.4 F Pulse Rate 87 86 Pulse Rate [Pulse Oximeter] 87 Respiratory Rate 20 Blood Pressure Blood Pressure [Ri ght Upper Arm] 168/96 H Pulse Oximetry 98 98 97 [facility] 12/14/23 11:41 12/14/23 11:43 12/14/23 11:45 Temperature Pulse Rate 79 83 80 Pulse Rate [Pulse Oximeter] Respiratory Rate 16 Blood Pressure 168/85 H Blood Pressure [Ri ght Upper Arm] Pulse Oximetry 100 98 99 [facility] 12/14/23 12:03 12/14/23 12:05 12/14/23 12:15 Temperature Pulse Rate 82 86 Pulse Rate [Pulse Oximeter] Respiratory Rate Blood Pressure 153/83 H Blood Pressure [Ri ght Upper Arm] Pulse Oximetry 96 99 Oxygen Delivery Hi thod 12/14/23 12:26 12/14/23 12:26 12/14/23 12:27 Temperature Pulse Rate 85 80 Pulse Rate [Pulse Oximeter] Respiratory Rate Blood Pressure 141/89 H Blood Pressure [Ri ght Upper Arm] Pulse Oximetry 99 99 99 [facility] 12/14/23 12:28 12/14/23 12:30 12/14/23 12:32 Temperature Pulse Rate 81 83 79 Pulse Rate [Pulse Oximeter] Respiratory Rate 16 16 Blood Pressure 163/83 H 163/85 H Blood Pressure [Ri ght Upper Arm] Pulse Oximetry 99 97 98 Oxygen Delivery Me thod 12/14/23 12:45 12/14/23 13:00 12/14/23 13:02 Temperature Pulse Rate 81 84 86 Pulse Rate [Pulse Oximeter] Respiratory Rate Blood Pressure 144/72 H Blood Pressure [Ri ght Upper Arm] Pulse Oximetry 99 100 98 Oxygen Delivery Me thod 12/14/23 13:15 Temperature Pulse Rate 87 Pulse Rate [Pulse Oximeter] Respiratory Rate Blood Pressure Blood Pressure [Ri ght Upper Arm] Pulse Oximetry 100 Oxygen Delivery Me thod Course Course ED Course: EKG, read by me, shows normal sinus rhythm with a pulse of 88. Point of care troponin is 0. Chest x-ray, read by me, does not show any acute abnormalities. CBC unremarkable. Chemistries unremarkable. LFTs unremarkable. Troponin less than 0.01. Normal lipase. Discussed results with the patient. Discussed GERD, gastritis, PUD. Recommend that she start omeprazole mom edema as needed for acute discomfort. I think there is low risk that her symptoms are cardiovascular in nature given her workup and history today. However, I do recommend she follow up with her primary care provider to discuss further testing if she is not feeling better in the next week. Vital Signs Vital signs: Initial Vital Signs Temperature 99.4 F 12/14/23 10:28 Temperature Source Temporal Artery Scan 12/14/23 10:28 Pulse Rate 87 12/14/23 10:28 Respiratory Rate 20 12/14/23 10:28 Blood Pressure 168/96 H 12/14/23 10:28 Blood Pressure Mean 120 H 12/14/23 10:28 Blood Pressure Position Sitting 12/14/23 10:28 Pulse Oximetry 98 12/14/23 10:28 Oxygen Delivery Method Room Air 12/14/23 10:28 Vital Signs Temperature 99.4 F 12/14/23 10:28 Pulse Rate 87 12/14/23 10:28 Respiratory Rate 20 12/14/23 10:28 Blood Pressure 168/96 H 12/14/23 10:28 Pulse Oximetry 98 12/14/23 10:28 Oxygen Delivery Method Room Air 12/14/23 10:28 Temperature 99.4 F 12/14/23 10:28 Pulse Rate 87 12/14/23 13:15 Respiratory Rate 16 12/14/23 12:32 Blood Pressure 144/72 H 12/14/23 13:02 Pulse Oximetry 100 12/14/23 13:15 Oxygen Delivery Method Room Air 12/14/23 10:28 Medications Administered Medications: Discontinued Medications Generic Name Dose Route Start Last Admin Trade Name Freq PRN Reason Stop Dose Admin Famotidine 20 mg 12/14/23 13:04 12/14/23 13:23 Famotidine 20 Mg Tablet PO 12/14/23 13:05 20 mg ONCE ONE Administration Medical Decision Making MDM Narrative Medical decision making narrative: 73-year-old female with epigastric discomfort. Discussed omeprazole famotidine. Discussed follow-up with primary care provider and reasons to return to the ER. Lab Data Lab results reviewed: Yes I reviewed the patient's lab results Labs: Lab Results 12/14/23 12/14/23 Range/Units 12:05 12:10 WBC 10.19 (4.50-11.00) K/uL RBC 4.79 (4.00-5.20) m/uL Hgb 15.4 (12.0-16.0) gm/dL Hct 44.7 (33.0-51.0) % MCV 93 (80-100) fL MCH 32 (26-34) pg MCHC 35 (32-36) gm/dL RDW Coeff of Royal 11.8 (11.5-15.5) % Plt Count 196 (140-440) K/uL Neut % (Auto) 76.6 H (42.0-72.0) % Lymph % (Auto) 18.4 L (20-44) % [place] % (Auto) 4.5 (0.0-11.0) % Eos % (Auto) 0.2 (0.0-7.0) % Baso % (Auto) 0.2 (0.0-3.0) % Neut # (Auto) 7.80 H (1.7-7.0) K/uL Lymph # (Auto) 1.90 (0.90-2.90) K/uL [place] # (Auto) 0.50 (0.00-0.90) K/UL Eos # (Auto) 0.02 (0.00-0.50) K/uL Baso # (Auto) 0.02 (0.00-0.30) K/uL Abs Immat Gran (auto) 0.01 (0.00-0.30) K/uL Imm/Tot Granulo (auto) 0.1 % Diff Slide Review Acceptable Review (Acceptable) Sodium 134 L (135-149) mmol/L Potassium 3.7 (3.6-5.1) mmol/L Chloride 101 (96-114) mmol/L Carbon Dioxide 27 (20-32) mmol/L Anion Gap 6 L (7-15) mEq/L BUN 17 (7-30) mg/dL Creatinine 0.6 (0.5-1.5) mg/dL Estimated Creat Clear 44.41 Estimated GFR 94 ml/min Glucose 165 H (60-115) mg/dL Lactate 1.8 (0.5-1.9) mmol/L Calcium 9.4 (8.4-10.6) mg/dL Total Bilirubin 0.6 (0.1-1.5) mg/dL Direct Bilirubin 0.3 (0.0-0.5) mg/dL AST 32 (12-35) U/L ALT 25 (4-35) U/L Alkaline Phosphatase 94 (40-150) U/L Troponin I < 0.01 L (0.01-0.04) ng/mL C-Reactive Protein 0.5 (0.5-1.0) mg/dL Total Protein 7.9 (6.0-8.3) g/dL Albumin 4.6 (3.3-5.0) g/dL Lipase 64 (23-300) U/L POC Troponin I 0.00 L (0.01-0.04) ng/ml Imaging Data Chest x-ray: Attestation: I have reviewed the pertinent imaging results. Radiologist's impression: TECHNIQUE: Chest 2 views. COMPARISON: April 11, 2023. FINDINGS: Cardiovascular and mediastinum: Heart size and vasculature are normal in caliber and appearance. Lungs and pleural spaces: Lungs are clear. No sign of infiltrate or mass. No sign of pleural effusion. No pneumothorax. Bones and soft tissues: No significant findings. IMPRESSION: No acute or significant findings. ECG Data Attestation: I personally reviewed and interpreted this ECG as follows: Discharge Plan Discharge Clinical Impression: Epigastric discomfort Patient Disposition: Home, Self-Care Condition: Stable Additional Instructions: I believe that the origin of your discomfort is likely secondary to increased acid production in your stomach. I recommend that you start taking omeprazole (Prilosec), 1 tablet daily. You can purchase this [id number]. When you are feeling acutely uncomfortable, you can also take a famotidine (Zantac) - which can also be purchased [id number]. If you do not notice a difference in your symptoms in next 1-2 days, you should follow-up with your primary care provider. If your pain becomes worse despite treatment, you should return to the emergency room. Prescriptions: No Action phentermine 15 mg capsule 15 mg PO QDAY Qty: 30 2RF Rx Instructions: must administer 2 hours after breakfast prednisolone acetate 1 % drops,suspension 1 drp ophthalmic (eye-left) QID ketorolac 0.5 % drops Rx Instructions: SMARTSIG:In Eye(s) diltiazem HCl 60 mg tablet Rx Instructions: Take 1 Tablet (60 mg) by mouth. betamethasone dipropionate 0.05 % lotion topical PRN cyclosporine [Restasis] 0.05 % dropperette Rx Instructions: Place 1 Drop into left eye 4 times a day. metoprolol tartrate 25 mg tablet Rx Instructions: take 1 tab PRN tachycardia gatifloxacin 0.5 % drops Rx Instructions: Instill 1 drop into left eye four times a day until the bottle is empty, starting one day prior to surgery. Follow Up/Referrals: Ricardo Sancehz MD [Primary Care Provider] - Stand Alone Forms: [employer] Info Instructions
--- OUTSIDE RECORDS SUMMARY | 2023-12-14 11:46 | XMS_ITS | Clinical Summary ---
Author Organization [facility] Address [place], [place] [address] Care Team Providers Care Solar Installer Pv Name Role Phone Mindi Mejia MD Primary Care Provider Allergies Active Allergy Reactions Criticality Noted Date Comments Penicillins Edema,Angioedema 02/01/2005 Occurred at age 5 Generalized swelling, skin lesions, swollen joints Medications Medication Sig Dispensed Refills Start Date End Date Status medication order composer Christensen - All vitamin, completely balance. 0 10/30/2016 [...] tachycardia) 01/02/2017 Overview: Seen by EP at [facility]. Plan for as needed 25mg metoprolol Abnormal [...] Comments Blood Pressure 110/78 05/18/2019 3:59 PM HASHER MACHINE OPERATOR Pulse 69 05/18/2019 3:59 PM HASHER MACHINE OPERATOR Temperature 37 ??C (98.6 ??F) 09/22/2014 1:45 PM CDT Respiratory Rate 16 04/29/2018 1:07 PM HASHER MACHINE OPERATOR Oxygen Saturation 98% 05/18/2019 3:59 PM HASHER MACHINE OPERATOR Inhaled Oxygen Concentration - - Weight 85.2 kg (187 lb 12.8 oz) 05/18/2019 3:59 PM HASHER MACHINE OPERATOR Height 173.4 cm (5' 8.27) 05/18/2019 3:59 PM CS T Body Mass Index 28.33 05/18/2019 3:59 PM HASHER MACHINE OPERATOR Plan of Treatment Health Maintenance Due Date [...] 8, 01/30/2017 Medical Devices Implanted Type Area Manufacturing Engineer Supervisor Device Identifier Shelf Expiration Date Model / Serial / Lot M.062 Smooth - [id number] Implanted:Qty: 1 on 04/02/2012 by Arnol Maria MD at [facility] Ortho Imp., Pins, Rods, Wires Left: Wrist .062 SMOOTH / [id number] / Wire Kirs .[id number] [facility] [id number] [employer] - [id number] Implanted:Qty: 1 on 04/02/2012 by Arnol Maria MD at [facility] Left: Wrist [id number]# / / Procedures Procedure Name Priority Date/Time Associated Diagnosis Comments LIPID PANEL W REFLEX MEASURED LDL Routine 04/29/2018 2:16 PM HASHER MACHINE OPERATOR Medicare annual wellness visit, subsequent SCAN-MAMMOGRAPHY REPORT 10/17/2017 12:00 AM CDT SCAN-COLONOSCOPY 02/25/2013 8:00 AM HASHER MACHINE OPERATOR ANTI HCV Routine 10/20/2006 1:05 PM CDT Malaise And Fatigue from Last 3 Months or Most Recently Relevant to Health Maintenance Results * LIPID PANEL W REFLEX MEASURED LDL (04/29/2018 2:16 PM HASHER MACHINE OPERATOR) CHOLESTEROL,TOTAL 193 100 - 199 mg/dL 04/29/2018 11:47 PM HASHER MACHINE OPERATOR [email or web address] TRIGLYCERIDES 121 <150 mg/dL 04/29/2018 11:47 PM HASHER MACHINE OPERATOR [email or web address] HDL CHOLESTEROL 51 >40 mg/dL 9 11:47 PM HASHER MACHINE OPERATOR [facility] [employer] [facility] NON-HDL CHOLESTEROL 142 <145 mg/dl 04/29/2018 11:47 PM HASHER MACHINE OPERATOR [facility] CHOL/HDL RATIO 3.78 <4.50 04/29/2018 11:47 PM HASHER MACHINE OPERATOR [facility] [facility] LDL CHOLESTEROL 118 <=130 mg/dL 04/29/2018 11:47 PM HASHER MACHINE OPERATOR [email or web address] PROVIDER ORDERED STATUS RANDOM 04/29/2018 11:47 PM HASHER MACHINE OPERATOR [email or web address] Blood BLOOD SPECIMEN / Unknown Butterfly / Unknown 04/29/2018 2:16 PM HASHER MACHINE OPERATOR 04/29/2018 2:16 PM HASHER MACHINE OPERATOR Mindi Mejia MD [facility] [address] [place] [address], * SCAN-MAMMOGRAPHY REPORT (10/17/2017 12:00 AM CDT) Anatomical Region Laterality Modality Other Scanner OTHER * SCAN-COLONOSCOPY (02/25/2013 8:00 AM HASHER MACHINE OPERATOR) Narrative Transcriptions Mehdi Jacinto MD - 02/25/2013 7:42 AM CST [facility] [address] [place] [address], [address], [place] [address] Patient Name: Sarah Pacheco Gender: Female Exam Date: 02/25/2013 Visit Number: [id number] Age: 62 Years 3 Months Date of : 1950 Attending MD: Mehdi Jacinto MD Medical Record#: [id number] ----- Procedure: Colonoscopy Indications: Colorectal cancer screening [...] in animmediate family member, you should contact [facility] or your primary providerto discuss whether your [...] _Electronically signed by: Mehdi Jacinto MD 02/25/2013 [facility] [phone] *Portions of this document may have been recorded using electronic voicerecognition technology. Mehdi Jacinto MD OTHER * ANTI HCV (10/20/2006 1:05 PM CDT) ANTI HCV Non-reacti ve [facility] Blood specimen (specimen) BLOOD SPECIMEN / Unknown 10/20/2006 1:05 PM CDT 10/20/2006 1:04 PM CDT Uma SHEN SEND OUTS [facility] [place]NAL ZIP [id number] [address] from Last 3 Months or Most Recently Relevant to Health Maintenance Advance Directives * Full Code (Latest Code Status on File) Date Activated Date Inactivated Comments 04/02/2012 10:19 AM 04/02/2012 5:06 PM * Full Code Date Activated Date Inactivated Comments 06/04/2011 9:21 AM 06/04/2011 1:41 PM * Full Code Date Activated Date Inactivated Comments 06/04/2011 6:47 AM 06/04/2011 9:21 AM Care Teams Solar Installer Pv Relationship Specialty Start Date End Date Mindi Mejia MD [address] [place] [address] PCP - General Internal Medicine 02/19/17
--- OUTSIDE RECORDS SUMMARY | 2023-12-14 11:46 | XMS_ITS | Clinical Summary ---
Author Organization [facility] Address [address] [place] [address] Care Team Providers Care Emergency Response Technician Name Role Phone Ricardo Sanchez MD Primary Care Provider [phone] Source Comments You are receiving this document as you are listed as the primary care provider,follow-up provider, or the patient has been referred to you for consultation.This is in compliance with the Medicare andA[facility] Hospitalcaid EHR Incentive Program,which states Providers who transition their patient to another setting of careor provider of care or refers their patient to another provider of care shouldprovide summary care record for each transition of care or referral. [employer] Allergies Active Allergy Reactions Criticality Noted Date [...] Active Active Problems No known active problems Social History Tobacco Use Types Packs/Day Years Used Date Smoking Tobacco: Never Sex and Gender Information Value Date Recorded Sex Assigned at Not on file Gender Identity Not on file Sexual Orientation Not on file Last Filed Vital Signs Vital Sign Reading Time Taken Comments Blood Pressure - - Pulse - - Temperature 36.4 ??C (97.5 ??F) 08/27/2023 11:21 AM C DT Respiratory Rate - - [...] Cholesterol 1994 Dexa 2014 COVID-19 Vaccine ( season) 2022 07/14/2020, 06/23/2020 Influenza (#1) 2023 03/20/2023, 01/19, 01/15/2021, Additional history exists DTaP/Tdap/Td (2 - Tdap) 01/18/2026 01/19/2016, 12/09 Pneumococcal 65+ Yrs Completed 04/07/2018, 01/31/20 17 HepA Aged Out 05/18/2019, 12/09/2002 No lo nger eligible based on patient's age to complete this topic Zoster/Shingles Completed 11/12/2022, 08/19/2022 HepB Aged Out No longer eligi ble based on patient's age to complete this topic Hib Aged Out No longer eligi ble based on patient's age to complete this topic IPV (Polio) Aged Out No longer eligi ble based on patient's age to complete this topic MCV4 Aged Out No longer eligi ble based on patient's age to complete this topic Care Teams Emergency Response Technician Relationship Specialty Start Date End Date Ricardo Sanchez MD [address] [address] PCP - General 09/09/23
[2023-12-14 12:18] LABS: Lactate* 1.8 mmol/L (0.5-1.9)
[2023-12-14 12:26] LABS: Basophils Absolute Auto 0.02 K/uL (0.00-0.30); Basophils Percent Auto 0.2 % (0.0-3.0); Eosinophils Absolute Auto 0.02 K/uL (0.00-0.50); Eosinophils Percent Auto 0.2 % (0.0-7.0); Hematocrit 44.7 % (33.0-51.0); Hemoglobin* 15.4 gm/dL (12.0-16.0); Immature Granulocytes Abs Auto 0.01 K/uL (0.00-0.30); Immature Granulocytes Pct Auto 0.1 %; Lymphocytes Percent Auto 18.4 % (20-44); Mean Corpuscular HGB Conc 35 gm/dL (32-36); Mean Corpuscular Hemoglobin 32 pg (26-34); Mean Corpuscular Volume 93 fL (80-100); Monocytes Percent Auto 4.5 % (0.0-11.0); Neutrophils Percent Auto 76.6 % (42.0-72.0); Platelet Count* 196 K/uL (140-440); RDW Coefficient of Variation % 11.8 % (11.5-15.5); Red Blood Count 4.79 m/uL (4.00-5.20); White Blood Count* 10.19 K/uL (4.50-11.00)
[2023-12-14 12:30] LABS: Slide Review Reflex Yes
[2023-12-14 12:31] LABS: Slide Review Acceptable Review (Acceptable)
[2023-12-14 12:54] LABS: Albumin* 4.6 g/dL (3.3-5.0)
[2023-12-14 12:55] LABS: Chloride* 101 mmol/L (96-114); Potassium* 3.7 mmol/L (3.6-5.1); Sodium* 134 mmol/L (135-149)
[2023-12-14 12:57] LABS: Alkaline Phosphatase* 94 U/L (40-150); Aspartate Amino Transferase* 32 U/L (12-35); Bilirubin Direct* 0.3 mg/dL (0.0-0.5); Bilirubin Total* 0.6 mg/dL (0.1-1.5); Lipase* 64 U/L (23-300); Total Protein* 7.9 g/dL (6.0-8.3)
[2023-12-14 12:58] LABS: Alanine Aminotransferase* 25 U/L (4-35); Creatinine* 0.6 mg/dL (0.5-1.5); Est. Creatinine Clearance* 44.41; Estimated Glomerular Filt Rate 94 ml/min
[2023-12-14 12:59] LABS: Anion Gap 6 mEq/L (7-15); Blood Urea Nitrogen* 17 mg/dL (7-30); Calcium* 9.4 mg/dL (8.4-10.6); Carbon Dioxide* 27 mmol/L (20-32); Glucose* 165 mg/dL (60-115)
[2023-12-14 13:02] LABS: C Reactive Protein* 0.5 mg/dL (0.5-1.0)
[2023-12-14 13:12] LABS: Troponin I* < 0.01 ng/mL (0.01-0.04)
[2023-12-14] MEDS: FAMOTIDINE 20 MG TABLET PO (13:23)
== END 2023-12-14 13:53 | disposition home or self-care (01) ==
PROVIDERS: Emergency Provider Family Medicine; PCP Internal Medicine
DX: R10.13 Epigastric pain (principal)
CPT/HCPCS: 36415; 71046; 80048; 80076; 83605; 83690; 84484; 85025; 86140; 93005; 94761; 99284; A9270

== ENCOUNTER 2025-01-04 12:11 | Outpatient (CLI) | payer MEDICARE, BC, SELFPAY | END 2025-01-04 12:12 | disposition home or self-care (01) | PROVIDERS: PCP Internal Medicine; Visit Provider Internal Medicine | DX: E66.9 Obesity, unspecified (principal); F41.9 Anxiety disorder, unspecified | CPT/HCPCS: 80053; 80061; 84443 ==